=== PATIENT | female | born 1970 | race American Indian/Alaskan Native ===

== ENCOUNTER 2019-05-01 05:48 | Inpatient (IN) ==
[2019-05-01] MEDS ORDERED: 0.9 % SODIUM CHLORIDE 2,000 ML IV ONE (06:04)
[2019-05-01] MEDS ORDERED: KETOROLAC 30 MG/ML VIAL IV ONE ×2 (06:04→15:45)
[2019-05-01] MEDS ORDERED: ONDANSETRON 4 MG/2 ML VIAL IV ONE ×2 (06:04→10:58)
[2019-05-01] MEDS ORDERED: HYDROmorphone 2 MG/ML VIAL IV PRN ×2 (06:04→14:16)
[2019-05-01] MEDS ORDERED: PANTOPRAZOLE 40 MG VIAL IV ONE (06:04)
--- NOTE | 2019-05-01 06:09 | Emergency Department Note ---
Abdominal Pain HPI - General Chief Complaint: Abdominal Pain Stated Complaint: abdominal pain Time Seen by Provider: 05/01/19 05:58 Source: patient Mode of arrival: ambulatory Limitations: no limitations - History of Present Illness HPI Narrative: 48-year-old female with a 2-day history of nausea vomiting diarrhea and severe belly pain. Belly pain is generalized around the center of her belly. Denies fever or shortness of breath. She is rocking in pain. States that she is not able to keep any medicines or food down States she no longer has menses - Related Data Home Medications Medication Instructions Recorded Confirmed No Known Home Meds 05/01/19 05/01/19 Allergies Allergy/AdvReac Type Severity Reaction Status Date / Time hydrocodone Allergy Unknown Unknown Verified 05/01/19 05:52 Review of Systems All systems ED: reviewed and negative except as stated. Abdominal Pain PMH - Past Medical History Attestation: Yes: The following information was validated with the patient. PMF Narrative: Family History Aunt Malignant neoplasm of breast Father Cerebrovascular accident Medical History Hematuria (Acute) Bacterial vaginosis (Acute) UTI (urinary tract infection) (Acute) HSV infection (Acute) Asthma (Acute) Hair and hair follicle disease (Acute) Depression (Acute) Dermatitis (Acute) Past Surgical History Volvulus (Acute) Small bowel obstruction (Acute) Surgical history ED: Reports: , other (Bowel resection) - Social History Smoking status: Current every day smoker Physical Exam Patient is rocking back and forth in pain but mostly cooperative. No nasal discharge or congestion. Oropharynx pink and moist. Posterior pharynx clear. Neck is supple without lymphadenopathy or thyromegaly. Heart is regular rate and rhythm no murmur appreciated. Lungs are clear to auscultation bilaterally without wheezes rales rhonchi or respiratory distress. Abdomen is soft diffusely tender mostly around the umbilicus. I cannot reproduce the tenderness she is feeling. She is nauseous here but not actively vomiting. Alert and able to answer questions appropriately Limitations: no limitations Course Vital Signs Temperature 97.0 F 05/01/19 05:49 Pulse Rate 92 H 05/01/19 05:49 Respiratory Rate 18 05/01/19 05:49 Blood Pressure 177/115 05/01/19 05:49 Pulse Oximetry (%) 100 05/01/19 05:49 Temperature 97.0 F 05/01/19 05:49 Pulse Rate 72 05/01/19 08:04 Respiratory Rate 20 05/01/19 06:36 Blood Pressure 152/89 05/01/19 08:01 Pulse Oximetry (%) 100 05/01/19 08:04 Abdominal Pain - Lab Data Lab results reviewed: Yes I reviewed the patient's lab results. Result diagrams: 05/01/19 06:12 05/01/19 06:12 Lab Results 05/01/19 05/01/19 05/01/19 Range/Units 06:12 06:12 06:12 WBC 13.7 H (4.50-11.00) K/mcL RBC 5.77 H (3.59-5.38) M/mcL Hgb 16.4 H (11.2-15.7) g/dL Hct 50.5 H (34.1-44.9) % POC Hct 53.0 H (36.0-48.0) % MCV 87.5 (80.0-100.0) fL MCH 28.4 (26.0-34.0) pg MCHC 32.5 (31.0-36.0) g/dL RDW 12.7 (11.5-14.5) % Plt Count 318 (140-440) K/mcL MPV 10.4 (7.4-10.4) fL Gran % 81.6 H (38.0-78.0) % Lymph % (Auto) 12.7 L (15.5-49.0) % Arroyo % (Auto) 4.9 (1.0-12.0) % Eos % (Auto) 0.7 (0.0-7.0) % Baso % (Auto) 0.1 (0.0-2.0) % Gran # 11.20 H (1.80-8.00) K/mcL Lymph # (Auto) 1.74 (1.50-4.80) K/mcL Arroyo # (Auto) 0.68 (0.10-0.90) K/mcL Eos # (Auto) 0.10 (0.00-0.70) K/mcL Baso # (Auto) 0.02 (0.00-0.30) K/mcL VBG Lactic Acid 0.9 (0.5-2.0) mmol/L POC Sodium 137 (133-145) mmol/L Sodium 133 (133-145) mmol/L POC Potassium 4.0 (3.3-5.1) mmol/L Potassium 4.2 (3.3-5.1) mmol/L POC Chloride 102 (96-108) mmol/L Chloride 97 (96-108) mmol/L Carbon Dioxide 23 (22-30) mmol/L POC Total CO2 26 (22-30) mmol/L Anion Gap 13.0 (8-16) POC BUN 17 (6-20) mg/dl BUN 15 (6-20) mg/dl Creatinine 1.0 (0.6-1.1) mg/dl POC Creatinine 0.9 (0.6-1.1) mg/dl GFR Calculation 67 Glucose 102 (70-105) mg/dL POC Glucose 101 (70-105) mg/dL Calcium 9.8 (8.6-10.4) mg/dl POC WB Ioniz Calcium 1.13 L (1.16-1.32) mmol/L Total Bilirubin 0.6 (0.0-1.0) mg/dL AST 20 (0-37) U/l ALT 16 (0-40) U/l Alkaline Phosphatase 107 (39-117) U/L Total Protein 8.5 H (5.9-8.4) gm/dL Albumin 4.2 (3.2-5.2) gm/dL Globulin 4.3 H (2.2-3.7) gm/dL Albumin/Globulin Ratio 1.0 (1.0-2.3) Amylase 77 (28-100) U/L Lipase 30 (7-60) U/L Urinalysis [id number] dipstick shows specific gravity 1.030 and hematuria otherwise normal. Negative hCG - Radiology Data Radiology results reviewed: Yes I reviewed the patient's radiology results. CT scan of the abdomen pelvis without contrast shows dilated fluid-filled small bowel loops throughout the abdomen transition point is not identified. Evidence of partial bowel restriction with your anastomosis is seen. Findings are suggestive of intermediate to high-grade distal small bowel obstruction versus ileus Disposition Pt seen by SHINGLE CATCHER/PA only: No Clinical Impression: Small bowel obstruction Summary: Severe abdominal pain with uncontrolled nausea and vomiting. Unclear cause. Check x-ray for small bowel obstruction. Laboratory. Start Dilaudid Toradol and Zofran along with IV fluids Preliminary urinalysis [id number] dipstick shows hematuria with specific ap pendectomy 1.030 indicating urine concentration. Stop x-ray and instead switch to CT without contrast for urinary stone Partial small bowel obstruction seen on CT scan. I discussed the case with Dr. Kevin Clemons, general surgeon. He said he will come see the patient in the ER Shift change came and patient will be handed off to Dr. Madsen for final disposition Disposition: Still a Patient Condition: Fair Referrals: Wong Mcnair ARNP [Primary Care Provider] -
[2019-05-01 06:22] LABS: POC Blood Urea Nitrogen 17 mg/dl (6-20); POC CO2 26 mmol/L (22-30); POC Calcium, Ionized 1.13 mmol/L (1.16-1.32); POC Chloride 102 mmol/L (96-108); POC Creatinine 0.9 mg/dl (0.6-1.1); POC Glucose, Random 101 mg/dL (70-105); POC Sodium 137 mmol/L (133-145)
[2019-05-01 06:39] LABS: Basophils # (Auto) 0.02 K/mcL (0.00-0.30); Basophils % (Auto) 0.1 % (0.0-2.0); Eosinophils % (Auto) 0.7 % (0.0-7.0); Granulocytes % (Auto) 81.6 % (38.0-78.0); Hematocrit 50.5 % (34.1-44.9); Hemoglobin 16.4 g/dL (11.2-15.7); Lymphocytes # (Auto) 1.74 K/mcL (1.50-4.80); Lymphocytes % (Auto) 12.7 % (15.5-49.0); Mean Cell Volume 87.5 fL (80.0-100.0); Mean Corpuscular HGB Conc 32.5 g/dL (31.0-36.0); Mean Platelet Volume 10.4 fL (7.4-10.4); Monocytes # (Auto) 0.68 K/mcL (0.10-0.90); Monocytes % (Auto) 4.9 % (1.0-12.0); Platelet Count 318 K/mcL (140-440); RBC 5.77 M/mcL (3.59-5.38); Red Cell Distribution Width 12.7 % (11.5-14.5); WBC 13.7 K/mcL (4.50-11.00)
[2019-05-01 07:01] LABS: ALT/SGPT 16 U/l (0-40); AST/SGOT 20 U/l (0-37); Albumin 4.2 gm/dL (3.2-5.2); Alkaline Phosphatase 107 U/L (39-117); Amylase 77 U/L (28-100); Bilirubin,Total 0.6 mg/dL (0.0-1.0); Blood Urea Nitrogen 15 mg/dl (6-20); Calcium 9.8 mg/dl (8.6-10.4); Carbon Dioxide 23 mmol/L (22-30); Chloride 97 mmol/L (96-108); Globulin 4.3 gm/dL (2.2-3.7); Glomerular Filtration Rate 67; Glucose 102 mg/dL (70-105)
--- NOTE | 2019-05-01 09:07 | Cat Scan Report ---
CLINICAL INFORMATION: Flank pain and hematuria COMPARISON: Abdomen and pelvic CT 07/18/2013 TECHNIQUE: 0.625 mm helical slices were obtained from the mid heart through the subtrochanteric regions. Following reconstruction, 2.5 mm sagittal, coronal and axial reformatted images were processed and reviewed at bone and soft tissue windows.The exam was performed using radiation dose optimization techniques including, but not limited to, automated exposure control, adjustment of the mA and/or kV according to patient size and use of iterative reconstruction technique. FINDINGS: Lung bases show no abnormality - no effusion. The visualized heart is normal. Abdominal images show the noncontrasted gallbladder and bile ducts, liver, both kidneys, adrenal glands, spleen, pancreas, and aorta are normal in size, configuration and attenuation without focal lesion. There is no free air, free fluid and no adenopathy. Pelvic images show anteflexed uterus which is moderately enlarged: 11 x 4.7 cm. IUD is properly positioned in the endometrial cavity. The region of the ovaries and urinary bladder are normal. There are multiple loops of moderately dilated small bowel with decompression of the distal ileum and colon compatible with partial distal small bowel obstruction. A dilated segment of small bowel in the upper central mesenteric cavity is juxtaposed to the greater curvature of the stomach. There are surgical clips in this region compatible with partial small bowel resection. Absence of both IV and enteric contrast decreases sensitivity in analyzing postsurgical anatomy surgical anatomy.. Bone windows show no focal osseous lesions. At L3-4, there is severe central canal stenosis due to congenitally foreshortened pedicles, grade 1 spondylolisthesis, facet hypertrophy and disc protrusion. IMPRESSION: 1. High-grade distal partial small bowel obstruction - poorly visualized due to the absence of enteric and IV contrast. Suggest small bowel follow-through to confirm diagnosis and detect transition point. There is no free air suggest perforation and no free fluid suggest third spacing. 2. Moderately enlarged anteflexed uterus stable since 2013. This almost certainly due to adenomyosis. There may also be a fibroid in the uterine fundus. IUD in satisfactory position endometrial cavity. 3. 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 This has increased from 2013 study Interpreted and Authenticated by: Rg Yang 05/01/19
[2019-05-01] MEDS ORDERED: PIPERACILLIN SODIUM/TAZOBACTAM 3.375 GM in DEXTROSE 5% IN WATER 50 ML IV ONE (09:36)
--- NOTE | 2019-05-01 09:42 | General Surg History&Physical ---
History of Present Illness Patient information: Note initiated : 05/01/19 at 9:39 am Service Date, if different from initiated Date: [] Patient: Ana Laura Clemons a 48 y/o F admitted on for Abdominal Pain. Chief Complaint: [] HPI: Ms. Clemons is a 48 year old F Admitted via the emergency room with a high-grade that bowel obstruction. The patient states that she had onset of abdominal pain early yesterday morning. This was followed by multiple episodes of nausea vomiting. Pain persisted throughout the night and she finally came to the emergency room. Her last bowel movement was yesterday. She has not had any flatus since that time. Patient gives a history of having inadvertent injury of her small bowel doing a C- section 9 years ago. And this was missed and she developed fecal peritonitis and had emergency exploration about 5 days post . According to her memory. Her small bowel was sutured to her uterus causing the obstruction. She required a small bowel resection. She had another exploration in 2011 which required small bowel resection. Since that time she's had 3 admissions for partial small bowel obstruction. At this time the patient is a very is in excruciating pain. She has significant abdominal distention and CT of the abdomen is compatible with a high-grade small bowel obstruction with a small bowel loop measuring over 9 cm. Patient is counseled for exploratory laparotomy and it will be performed today. Review of Systems All systems PM: reviewed and no additional remarkable complaints except as stated (negative except as noted in the history of present illness) Past History Past medical history: No chronic medical illness Past surgical history: Laparotomy with small bowel resection 2. section Past family history: AUNT with history of carcinoma the breast Father with stroke Past social history: Lives locally with parents. Daily tobacco smoker. Daily marijuana use. Denies alcohol use Medications and Allergies Home Medications Medication Instructions Recorded Confirmed Type No Known Home Meds 05/01/19 05/01/19 History Allergies Allergy/AdvReac Type Severity Reaction Status Date / Time hydrocodone Allergy Unknown Unknown Verified 05/01/19 05:52 Exam Temp Pulse Resp BP Pulse Ox 97.0 F 72 20 152/89 100 05/01/19 05:49 05/01/19 08:04 05/01/19 06:36 05/01/19 08:01 05/01/19 08:04 - General physical appearance well developed, well nourished, moderate distress, moderate pain - Eyes PERRL, normal ocular movement - ENT normal pinna, normal nares, normal mucosa, no hearing loss, no congestion, poor jail (multiple missing teeth) - Head Head exam IM: Present: atraumatic, normocephalic - Neck no masses, no bruits, trachea midline, no lymphadenopathy, no venous distension - Cardiovascular Cardiovascular exam IM: Present: normal rate and rhythm - Respiratory normal expansion, normal respiratory effort, clear to percussion, clear to auscultation - Abdomen Abdomen: Present: soft, tender (diffuse tenderness with guarding and midabdomen), bowel sounds, surgical scars (well-healed lower midline surgical scar), distended (distended abdomen with tympany; hyperactive bowel sounds) Hernia: Present: none - Genitourinary Present: normal external genitalia - Integumentary Present: no rash, no growths, no abnormal pigmentation - Neurologic Present: normal coordination, normal sensation - Musculoskeletal Present: normal gait, normal posture - Psychiatric Present: oriented to time, oriented to person, oriented to place, speech is normal, memory intact Assessment and Plan (1) Small bowel obstruction due to postoperative adhesions Patient counseled for urgent exploratory laparotomy and adhesiolysis. She is advised that she may potentially need to have repeat small bowel resection. Status: Acute
[2019-05-01] MEDS ORDERED: 0.9 % SODIUM CHLORIDE 1,000 ML IV ONE (09:47)
[2019-05-01] MEDS ORDERED: ALBUMIN HUMAN 12.5 GM/50 ML BAG IV ONE ×2 (10:21→10:58)
[2019-05-01] MEDS ORDERED: MAGNESIUM SULFATE 2 GM/50 ML BAG IV ONE ×2 (10:28→10:58)
[2019-05-01] MEDS ORDERED: SUGAMMADEX SODIUM 200 MG/2 ML VIAL IV ONE (10:58)
[2019-05-01] MEDS ORDERED: PHENYLEPHRINE 10 MG/ML VIAL IV ONE (10:58)
[2019-05-01] MEDS ORDERED: LIDOCAINE HCL/PF 100 MG/5 ML SYRINGE IV ONE (10:58)
[2019-05-01] MEDS ORDERED: KETAMINE 100 MG/ML ML IV ONE (10:58)
[2019-05-01] MEDS ORDERED: SUCCINYLCHOLINE 20 MG/ML ML IV ONE (10:58)
[2019-05-01] MEDS ORDERED: DEXAMETHASONE 10 MG/ML VIAL IV ONE (10:58)
[2019-05-01] MEDS ORDERED: PROPOFOL 200 MG/20 ML VIAL IV ONE (10:58)
[2019-05-01] MEDS ORDERED: fentaNYL 250 MCG/5 ML VIAL IV ONE (10:58)
[2019-05-01] MEDS ORDERED: ROPIVACAINE HCL/PF 30 ML VIAL IJ ONE (10:58)
[2019-05-01] MEDS ORDERED: ROCURONIUM 10 MG/ML ML IV ONE (10:58)
[2019-05-01 12:12] LABS: Amphetamine Screen,Urine SUSPECT POSITIVE (NONDETECTED); Barbiturate Screen,Urine NONE DETECTED (NONDETECTED); Benzodiazepines Screen,Urine NONE DETECTED (NONDETECTED); Cannabinoid Screen,Urine SUSPECT POSITIVE (NONDETECTED); Cocaine Screen,Urine NONE DETECTED (NONDETECTED); Opiate Screen,Urine SUSPECT POSITIVE (NONDETECTED); Oxycodone, Urine Screen NONE DETECTED (NONDETECTED); Phencyclidine Screen,Urine NONE DETECTED (NONDETECTED)
--- NOTE | 2019-05-01 14:13 | Brief Operative Note ---
Date of procedure: 05/01/19 Pre-op diagnosis: SMALL BOWEL OBSTRUCTION Post-op diagnosis: other (EXTENSIVE ADHESIONS WITH SMALL BOWEL OBSTRUCTION) Procedure: EXPLORATORY LAPAROTOMY WITH TOTAL INTESTINAL ADHESIOLYSIS;SMALL BOWEL RESECTION X 2;APPENDECTOMY Grafts/Implants: No Anesthesia: GETA Findings: TOTAL INTRAPERITONEAL INTESTINAL ADHESIONS WITH MULTIPLE AREAS OF NEAR COMPLETE SMALLBOEL OBSTRUCTION;DENSE INFLAMMATORY ADHESIONS OF ILEUM TO LOWER ABDOMINAL ANTERIOR WALL;TIGHT ADHESIONS OF UTERUS TO LOWER ANTERIOR ABDOMINAL WALL;ENLARGED OVARIES BILATERALLY;MASSIVE DILATION OF MID JEJUNO-JEJUNAL ANASTOM OSIS WITH LOSS OF PERISTALSIS AND RETENTION OF LARGE VOLUME OF INTESTINAL FLUID;DENSELY ADHESED APPENDIX TO RETROPERITONEUM Complications: none Surgeon: Ata Jasmine Estimated blood loss (cc): 100 Specimens Removed/Pathology: other (SEGMENT OF SMALL BOWEL X2;APPENDIX) Condition: stable Disposition: PACU
[2019-05-01] MEDS ORDERED: IPRATROPIUM/ALBUTEROL 3 ML AMPUL.NEB NEB PRN (14:16)
[2019-05-01] MEDS ORDERED: LACTATED RINGERS 250 ML IV PRN (14:16)
[2019-05-01] MEDS ORDERED: LABETALOL 5 MG/ML ML IV PRN (14:16)
[2019-05-01] MEDS ORDERED: ACETAMINOPHEN 1,000 MG/100 ML BOTTLE IV ONE (14:16)
[2019-05-01] MEDS ORDERED: METOPROLOL TARTRATE 5 MG/5 ML VIAL IV PRN (14:16)
[2019-05-01] MEDS ORDERED: FLUMAZENIL 0.1 MG/ML ML IV PRN (14:16)
[2019-05-01] MEDS ORDERED: ONDANSETRON 4 MG/2 ML VIAL IV PRN (14:16)
[2019-05-01] MEDS ORDERED: NALOXONE HCL 0.4 MG/ML VIAL IV PRN (14:16)
[2019-05-01] MEDS ORDERED: fentaNYL 100 MCG/2 ML VIAL IV PRN (14:16)
[2019-05-01] MEDS ORDERED: BENZOCAINE/MENTHOL 1 LOZENGE PO PRN (14:16)
[2019-05-01] MEDS ORDERED: METHOCARBAMOL 1,000 MG/10 ML VIAL IV PRN (14:16)
[2019-05-01] MEDS ORDERED: PROMETHAZINE 25 MG/ML VIAL IV PRN (14:16)
[2019-05-01] MEDS ORDERED: LACTATED RINGERS 1,000 ML IV SCH (14:30)
[2019-05-01] MEDS: PIPERACILLIN SODIUM/TAZOBACTAM 3.375 GM in DEXTROSE 5% IN WATER 50 ML IV SCH ×2 (17:03→19:33)
[2019-05-01] MEDS: LACTATED RINGERS 1,000 ML IV SCH (17:03)
[2019-05-01] MEDS: METOCLOPRAMIDE 10 MG/2 ML VIAL IV SCH ×2 (17:13→23:27)
[2019-05-01] MEDS: BENZOCAINE 1 SPRAY BOTTLE TOPICAL PRN ×2 (17:16→19:33)
[2019-05-01] MEDS: HYDROmorphone 2 MG/ML VIAL IV PRN ×2 (19:32→23:27)
[2019-05-01] MEDS: 0.9 % SODIUM CHLORIDE 10 ML SYRINGE IV SCH (20:06)
[2019-05-01] MEDS: KETOROLAC 30 MG/ML VIAL IV SCH (21:53)
[2019-05-02] MEDS: KETOROLAC 30 MG/ML VIAL IV SCH ×5 (00:24→23:43)
[2019-05-02] MEDS: LACTATED RINGERS 1,000 ML IV SCH ×3 (00:36→17:25)
[2019-05-02] MEDS: PIPERACILLIN SODIUM/TAZOBACTAM 3.375 GM in DEXTROSE 5% IN WATER 50 ML IV SCH ×5 (00:37→23:42)
[2019-05-02] MEDS: BENZOCAINE 1 SPRAY BOTTLE TOPICAL PRN ×6 (03:02→21:54)
[2019-05-02] MEDS: HYDROmorphone 2 MG/ML VIAL IV PRN ×7 (03:03→21:54)
[2019-05-02] MEDS: METOCLOPRAMIDE 10 MG/2 ML VIAL IV SCH ×4 (05:29→23:42)
[2019-05-02] MEDS: 0.9 % SODIUM CHLORIDE 10 ML SYRINGE IV SCH ×3 (06:06→21:14)
[2019-05-02 06:43] LABS: Basophils # (Auto) 0.03 K/mcL (0.00-0.30); Basophils % (Auto) 0.2 % (0.0-2.0); Eosinophils # (Auto) 0.03 K/mcL (0.00-0.70); Eosinophils % (Auto) 0.2 % (0.0-7.0); Granulocytes % (Auto) 85.3 % (38.0-78.0); Hematocrit 39.2 % (34.1-44.9); Hemoglobin 12.7 g/dL (11.2-15.7); Lymphocytes # (Auto) 1.04 K/mcL (1.50-4.80); Lymphocytes % (Auto) 7.3 % (15.5-49.0); Mean Cell Volume 88.9 fL (80.0-100.0); Mean Corpuscular HGB Conc 32.4 g/dL (31.0-36.0); Mean Platelet Volume 10.3 fL (7.4-10.4); Platelet Count 263 K/mcL (140-440); RBC 4.41 M/mcL (3.59-5.38); Red Cell Distribution Width 12.5 % (11.5-14.5); WBC 14.2 K/mcL (4.50-11.00)
[2019-05-02 07:05] LABS: ALT/SGPT 13 U/l (0-40); AST/SGOT 18 U/l (0-37); Albumin 3.2 gm/dL (3.2-5.2); Alkaline Phosphatase 73 U/L (39-117); Bilirubin,Direct < 0.2 mg/dL (0.0-0.3); Bilirubin,Total 0.7 mg/dL (0.0-1.0); Blood Urea Nitrogen 18 mg/dl (6-20); Calcium 8.1 mg/dl (8.6-10.4); Carbon Dioxide 20 mmol/L (22-30); Chloride 104 mmol/L (96-108); Glomerular Filtration Rate 76; Glucose 117 mg/dL (70-105); Lactate Dehydrogenase 189 U/L (94-250); Triglycerides 36 mg/dl (<150); Uric Acid 2.9 mg/dL (2.5-8.0)
[2019-05-02 07:06] LABS: Globulin 3.2 gm/dL (2.2-3.7)
--- NOTE | 2019-05-02 13:52 | General Surgery Progress Note ---
Subjective Patient reports: feels better, pain is less, no flatus, no bowel movement, afebrile Narrative: Note initiated : 05/02/19 at 1:50 pm Service Date, if different from initiated Date: [] Patient: Ana Laura Clemons 48 y/o F admitted on 05/01/19 for Abdominal Pain. Chief Complaint: [Patient is stable. Pain is better controlled. She has been afebrile. She denies nausea. White blood count 14.2, hemoglobin 12.7, hematocrit 32, BUN 18, creatinine 0.9.] Objective Temp Pulse Resp BP Pulse Ox 98.1 F 90 14 142/82 91 05/02/19 11:45 05/02/19 11:45 05/02/19 11:45 05/02/19 11:45 05/02/19 11:45 - Additional Data Intake & Output - Last 24 hours: Intake & Output 04/30/19 05/01/19 05/02/19 05/03/19 05:59 05:59 05:59 05:59 Intake Total 6398 1100 Output Total 975 Balance 5423 1100 Weight 170 lb 200 lb - General physical appearance well developed, well nourished, no distress, moderate distress, moderate pain - Eyes PERRL, normal ocular movement - ENT normal pinna, normal nares, normal mucosa, no hearing loss, no congestion - Neck no masses, no bruits, trachea midline, no lymphadenopathy, no venous distension - Respiratory normal expansion, normal respiratory effort, clear to auscultation - Cardiovascular Cardiovascular exam: Present: normal rate and rhythm, RRR, +S1, +S2 (yes). Absent: JVD, tachycardia - Abdomen non tender, bowel sounds (present), surgical scars (incision looks good), masses (none), distended (moderate distention with active bowel sounds) - Integumentary no rash, no growths, no abnormal pigmentation - Neurologic normal coordination, normal sensation - Musculoskeletal normal gait, normal posture - Psychiatric oriented to time, oriented to person, oriented to place, speech is normal, memory intact - Labs 05/02/19 05:21 05/02/19 05:21 Diabetes panel 05/02/19 Range/Units 05:21 Sodium 137 (133-145) mmol/L Potassium 4.2 (3.3-5.1) mmol/L Chloride 104 (96-108) mmol/L Carbon Dioxide 20 L (22-30) mmol/L BUN 18 (6-20) mg/dl Creatinine 0.9 (0.6-1.1) mg/dl Glucose 117 H (70-105) mg/dL Calcium 8.1 L (8.6-10.4) mg/dl AST 18 (0-37) U/l ALT 13 (0-40) U/l Alkaline Phosphatase 73 (39-117) U/L Total Protein 6.4 (5.9-8.4) gm/dL Albumin 3.2 (3.2-5.2) gm/dL Triglycerides 36 (<150) mg/dl Calcium panel 05/02/19 Range/Units 05:21 Calcium 8.1 L (8.6-10.4) mg/dl Phosphorus 4.0 (2.7-4.5) mg/dL Albumin 3.2 (3.2-5.2) gm/dL Pituitary panel 05/02/19 Range/Units 05:21 Sodium 137 (133-145) mmol/L Potassium 4.2 (3.3-5.1) mmol/L Chloride 104 (96-108) mmol/L Carbon Dioxide 20 L (22-30) mmol/L BUN 18 (6-20) mg/dl Creatinine 0.9 (0.6-1.1) mg/dl Glucose 117 H (70-105) mg/dL Calcium 8.1 L (8.6-10.4) mg/dl Adrenal panel 05/02/19 Range/Units 05:21 Sodium 137 (133-145) mmol/L Potassium 4.2 (3.3-5.1) mmol/L Chloride 104 (96-108) mmol/L Carbon Dioxide 20 L (22-30) mmol/L BUN 18 (6-20) mg/dl Creatinine 0.9 (0.6-1.1) mg/dl Glucose 117 H (70-105) mg/dL Calcium 8.1 L (8.6-10.4) mg/dl Total Bilirubin 0.7 (0.0-1.0) mg/dL AST 18 (0-37) U/l ALT 13 (0-40) U/l Alkaline Phosphatase 73 (39-117) U/L Total Protein 6.4 (5.9-8.4) gm/dL Albumin 3.2 (3.2-5.2) gm/dL Assessment and Plan (1) Small bowel obstruction due to postoperative adhesions Status: Acute Assessment and plan: Patient is clinically stable. She is allowed to have ice chips and popsicles. We'll continue present treatment Current Visit: Yes - Time Spent With Patient Total time spent is greater than 50% in coordination of care (as documented) at patient's floor/unit and/or counseling patient:
[2019-05-03] MEDS: LACTATED RINGERS 1,000 ML IV SCH ×5 (00:02→21:59)
[2019-05-03] MEDS: HYDROmorphone 2 MG/ML VIAL IV PRN ×4 (01:29→21:57)
[2019-05-03] MEDS: PIPERACILLIN SODIUM/TAZOBACTAM 3.375 GM in DEXTROSE 5% IN WATER 50 ML IV SCH ×4 (05:12→23:29)
[2019-05-03] MEDS: METOCLOPRAMIDE 10 MG/2 ML VIAL IV SCH ×4 (05:13→23:29)
[2019-05-03] MEDS: BENZOCAINE 1 SPRAY BOTTLE TOPICAL PRN ×7 (05:13→23:29)
[2019-05-03] MEDS: KETOROLAC 30 MG/ML VIAL IV SCH ×2 (05:13→13:08)
[2019-05-03] MEDS: 0.9 % SODIUM CHLORIDE 10 ML SYRINGE IV SCH ×3 (05:39→21:37)
[2019-05-03 06:28] LABS: Basophils # (Auto) 0.02 K/mcL (0.00-0.30); Basophils % (Auto) 0.2 % (0.0-2.0); Eosinophils # (Auto) 0.17 K/mcL (0.00-0.70); Eosinophils % (Auto) 1.6 % (0.0-7.0); Granulocytes % (Auto) 82.4 % (38.0-78.0); Hematocrit 37.6 % (34.1-44.9); Lymphocytes # (Auto) 1.08 K/mcL (1.50-4.80); Lymphocytes % (Auto) 10.2 % (15.5-49.0); Mean Cell Volume 89.3 fL (80.0-100.0); Mean Corpuscular HGB Conc 31.9 g/dL (31.0-36.0); Mean Platelet Volume 10.7 fL (7.4-10.4); Monocytes # (Auto) 0.59 K/mcL (0.10-0.90); Monocytes % (Auto) 5.6 % (1.0-12.0); Platelet Count 228 K/mcL (140-440); RBC 4.21 M/mcL (3.59-5.38); Red Cell Distribution Width 12.7 % (11.5-14.5); WBC 10.6 K/mcL (4.50-11.00)
[2019-05-03 07:20] LABS: Bilirubin,Direct < 0.2 mg/dL (0.0-0.3); Chloride 103 mmol/L (96-108)
[2019-05-03 07:29] LABS: ALT/SGPT 11 U/l (0-40); AST/SGOT 20 U/l (0-37); Albumin 2.8 gm/dL (3.2-5.2); Albumin/Globulin Ratio 0.8 (1.0-2.3); Alkaline Phosphatase 81 U/L (39-117); Bilirubin,Total 0.6 mg/dL (0.0-1.0); Blood Urea Nitrogen 18 mg/dl (6-20); Calcium 8.4 mg/dl (8.6-10.4); Carbon Dioxide 21 mmol/L (22-30); Globulin 3.6 gm/dL (2.2-3.7); Glomerular Filtration Rate 88; Glucose 101 mg/dL (70-105); Lactate Dehydrogenase 234 U/L (94-250); Phosphorous 2.2 mg/dL (2.7-4.5); Triglycerides 65 mg/dl (<150); Uric Acid 2.4 mg/dL (2.5-8.0)
[2019-05-03] MEDS ORDERED: FLU VACC QS2019-20(6MOS UP)/PF 60 MCG/0.5 ML SYRINGE IM ONE (10:00)
--- NOTE | 2019-05-03 14:38 | General Surgery Progress Note ---
Subjective Patient reports: still having pain, no flatus, no bowel movement, afebrile Narrative: Note initiated : 05/03/19 at 2:36 pm Service Date, if different from initiated Date: [] Patient: Ana Laura Clemons 48 y/o F admitted on 05/01/19 for Abdominal Pain. Chief Complaint: [patient is having complaints of significant pain. She does not appear to be in the acute distress. Vital signs stable and she is not tachycardic. He has not had flatus or bowel movement. White blood count 10.6, hemoglobin 12, hematocrit 37.6, phosphorus 2.2.] Objective Temp Pulse Resp BP Pulse Ox 98.2 F 98 H 16 131/78 91 05/03/19 03:34 05/03/19 03:34 05/03/19 03:34 05/03/19 03:34 05/03/19 03:34 - Additional Data Intake & Output - Last 24 hours: Intake & Output 05/01/19 05/02/19 05/03/19 05/04/19 05:59 05:59 05:59 05:59 Intake Total 6398 3650 1044 Output Total 975 900 Balance 5423 2750 1044 Weight 170 lb 200 lb 200 lb 8 oz 200 lb 8 oz - General physical appearance well developed, moderate distress, moderate pain - Eyes PERRL, normal ocular movement - ENT normal pinna, normal nares, normal mucosa, no hearing loss, no congestion, poor long-term - Neck no masses, no bruits, trachea midline, no lymphadenopathy, no venous distension - Respiratory normal expansion, normal respiratory effort, clear to auscultation - Cardiovascular Cardiovascular exam: Present: normal rate and rhythm, RRR, +S1, +S2. Absent: JVD, tachycardia - Abdomen tender (mild incisional tenderness), bowel sounds (present), surgical scars (none), masses (none) - Integumentary no rash, no growths, no abnormal pigmentation - Neurologic normal coordination, normal sensation - Musculoskeletal normal gait, normal posture - Psychiatric oriented to time, oriented to person, oriented to place, speech is normal, memory intact - Labs 05/03/19 05:09 05/03/19 05:09 Diabetes panel 05/03/19 Range/Units 05:09 Sodium 137 (133-145) mmol/L Potassium 4.0 (3.3-5.1) mmol/L Chloride 103 (96-108) mmol/L Carbon Dioxide 21 L (22-30) mmol/L BUN 18 (6-20) mg/dl Creatinine 0.8 (0.6-1.1) mg/dl Glucose 101 (70-105) mg/dL Calcium 8.4 L (8.6-10.4) mg/dl AST 20 (0-37) U/l ALT 11 (0-40) U/l Alkaline Phosphatase 81 (39-117) U/L Total Protein 6.4 (5.9-8.4) gm/dL Albumin 2.8 L (3.2-5.2) gm/dL Triglycerides 65 (<150) mg/dl Calcium panel 05/03/19 Range/Units 05:09 Calcium 8.4 L (8.6-10.4) mg/dl Phosphorus 2.2 L (2.7-4.5) mg/dL Albumin 2.8 L (3.2-5.2) gm/dL Pituitary panel 05/03/19 Range/Units 05:09 Sodium 137 (133-145) mmol/L Potassium 4.0 (3.3-5.1) mmol/L Chloride 103 (96-108) mmol/L Carbon Dioxide 21 L (22-30) mmol/L BUN 18 (6-20) mg/dl Creatinine 0.8 (0.6-1.1) mg/dl Glucose 101 (70-105) mg/dL Calcium 8.4 L (8.6-10.4) mg/dl Adrenal panel 05/03/19 Range/Units 05:09 Sodium 137 (133-145) mmol/L Potassium 4.0 (3.3-5.1) mmol/L Chloride 103 (96-108) mmol/L Carbon Dioxide 21 L (22-30) mmol/L BUN 18 (6-20) mg/dl Creatinine 0.8 (0.6-1.1) mg/dl Glucose 101 (70-105) mg/dL Calcium 8.4 L (8.6-10.4) mg/dl Total Bilirubin 0.6 (0.0-1.0) mg/dL AST 20 (0-37) U/l ALT 11 (0-40) U/l Alkaline Phosphatase 81 (39-117) U/L Total Protein 6.4 (5.9-8.4) gm/dL Albumin 2.8 L (3.2-5.2) gm/dL - Imaging Abdominal x-ray: report reviewed Assessment and Plan (1) Small bowel obstruction due to postoperative adhesions Status: Acute Assessment and plan: Patient is clinically stable. She is allowed to have ice chips and popsicles. We'll continue present treatment Current Visit: Yes - Time Spent With Patient Total time spent is greater than 50% in coordination of care (as documented) at patient's floor/unit and/or counseling patient:
[2019-05-03] MEDS ORDERED: POTASSIUM PHOSPHATE 40 MEQ in DEXTROSE 5% IN WATER 500 ML IV ONE (14:39)
[2019-05-04] MEDS: HYDROmorphone 2 MG/ML VIAL IV PRN ×4 (00:23→22:35)
[2019-05-04] MEDS: PIPERACILLIN SODIUM/TAZOBACTAM 3.375 GM in DEXTROSE 5% IN WATER 50 ML IV SCH ×4 (05:04→23:30)
[2019-05-04] MEDS: METOCLOPRAMIDE 10 MG/2 ML VIAL IV SCH ×4 (05:04→23:28)
[2019-05-04] MEDS: BENZOCAINE 1 SPRAY BOTTLE TOPICAL PRN (05:11)
[2019-05-04] MEDS: 0.9 % SODIUM CHLORIDE 10 ML SYRINGE IV SCH ×3 (05:23→23:28)
[2019-05-04 07:18] LABS: ALT/SGPT 10 U/l (0-40); AST/SGOT 17 U/l (0-37); Albumin 2.7 gm/dL (3.2-5.2); Albumin/Globulin Ratio 0.7 (1.0-2.3); Alkaline Phosphatase 93 U/L (39-117); Bilirubin,Direct 0.2 mg/dL (0.0-0.3); Bilirubin,Total 0.7 mg/dL (0.0-1.0); Blood Urea Nitrogen 10 mg/dl (6-20); Calcium 8.7 mg/dl (8.6-10.4); Carbon Dioxide 24 mmol/L (22-30); Chloride 100 mmol/L (96-108); Globulin 3.7 gm/dL (2.2-3.7); Glomerular Filtration Rate 88; Glucose 118 mg/dL (70-105); Lactate Dehydrogenase 211 U/L (94-250); Triglycerides 68 mg/dl (<150); Uric Acid 2.5 mg/dL (2.5-8.0)
[2019-05-04 07:33] LABS: Phosphorous 3.1 mg/dL (2.7-4.5)
[2019-05-04] MEDS: LACTATED RINGERS 1,000 ML IV SCH ×3 (08:24→17:47)
[2019-05-04 09:27] LABS: Basophils # (Auto) 0.03 K/mcL (0.00-0.30); Basophils % (Auto) 0.3 % (0.0-2.0); Eosinophils # (Auto) 0.28 K/mcL (0.00-0.70); Eosinophils % (Auto) 2.4 % (0.0-7.0); Granulocytes % (Auto) 87.2 % (38.0-78.0); Hematocrit 35.1 % (34.1-44.9); Hemoglobin 11.3 g/dL (11.2-15.7); Lymphocytes # (Auto) 0.76 K/mcL (1.50-4.80); Lymphocytes % (Auto) 6.4 % (15.5-49.0); Mean Cell Volume 88.2 fL (80.0-100.0); Mean Corpuscular HGB Conc 32.2 g/dL (31.0-36.0); Mean Platelet Volume 10.6 fL (7.4-10.4); Monocytes # (Auto) 0.44 K/mcL (0.10-0.90); Monocytes % (Auto) 3.7 % (1.0-12.0); Platelet Count 230 K/mcL (140-440); RBC 3.98 M/mcL (3.59-5.38); Red Cell Distribution Width 12.7 % (11.5-14.5); WBC 11.9 K/mcL (4.50-11.00)
[2019-05-04] MEDS: ONDANSETRON 4 MG/2 ML VIAL IV PRN (12:40)
--- NOTE | 2019-05-04 14:11 | General Surgery Progress Note ---
Subjective Patient reports: feels better, pain is less, voiding w/o difficulty, flatus, no bowel movement, afebrile Narrative: Note initiated : 05/04/19 at 2:09 pm Service Date, if different from initiated Date: [] Patient: Ana Laura Clemons 48 y/o F admitted on 05/01/19 for Abdominal Pain. Chief Complaint: [patient states that she was feeling better earlier today. She has passed flatus multiple times. She has not had a bowel movement. She was given a trial of clear liquids had emesis 2 hours later, so she is placed back on popsicles and ice chips. White count 11.9, hemoglobin 11.3, hematocrit 35, and patient panel normal.] Objective Temp Pulse Resp BP Pulse Ox 97.8 F 80 18 159/95 91 05/04/19 12:00 05/04/19 12:00 05/04/19 12:00 05/04/19 12:00 05/04/19 12:00 - Additional Data Intake & Output - Last 24 hours: Intake & Output 05/02/19 05/03/19 05/04/19 05/05/19 05:59 05:59 05:59 05:59 Intake Total 6398 3650 3753.0909 1280 Output Total 021 432 8198 Balance 5423 2750 -196.9091 1280 Weight 200 lb 200 lb 8 oz 203 lb - General physical appearance well developed, well nourished, no distress, moderate distress, moderate pain - Eyes PERRL, normal ocular movement - ENT normal pinna, normal nares, normal mucosa, no hearing loss, no congestion - Neck no masses, no bruits, trachea midline, no lymphadenopathy, no venous distension - Respiratory normal expansion, normal respiratory effort, clear to auscultation - Cardiovascular Cardiovascular exam: Present: normal rate and rhythm, RRR, +S1, +S2. Absent: JVD, tachycardia - Abdomen tender (patient has incisional tenderness; she does have hypoactive bowel sounds; there is mild abdominal), bowel sounds (present), surgical scars (none), masses (none) - Integumentary no rash, no growths, no abnormal pigmentation - Neurologic normal coordination, normal sensation - Musculoskeletal normal gait, normal posture - Psychiatric oriented to time, oriented to person, oriented to place, speech is normal, memory intact - Labs 05/04/19 05:45 05/04/19 05:45 Diabetes panel 05/04/19 Range/Units 05:45 Sodium 138 (133-145) mmol/L Potassium 3.7 (3.3-5.1) mmol/L Chloride 100 (96-108) mmol/L Carbon Dioxide 24 (22-30) mmol/L BUN 10 (6-20) mg/dl Creatinine 0.8 (0.6-1.1) mg/dl Glucose 118 H (70-105) mg/dL Calcium 8.7 (8.6-10.4) mg/dl AST 17 (0-37) U/l ALT 10 (0-40) U/l Alkaline Phosphatase 93 (39-117) U/L Total Protein 6.4 (5.9-8.4) gm/dL Albumin 2.7 L (3.2-5.2) gm/dL Triglycerides 68 (<150) mg/dl Calcium panel 05/04/19 Range/Units 05:45 Calcium 8.7 (8.6-10.4) mg/dl Phosphorus 3.1 (2.7-4.5) mg/dL Albumin 2.7 L (3.2-5.2) gm/dL Pituitary panel 05/04/19 Range/Units 05:45 Sodium 138 (133-145) mmol/L Potassium 3.7 (3.3-5.1) mmol/L Chloride 100 (96-108) mmol/L Carbon Dioxide 24 (22-30) mmol/L BUN 10 (6-20) mg/dl Creatinine 0.8 (0.6-1.1) mg/dl Glucose 118 H (70-105) mg/dL Calcium 8.7 (8.6-10.4) mg/dl Adrenal panel 05/04/19 Range/Units 05:45 Sodium 138 (133-145) mmol/L Potassium 3.7 (3.3-5.1) mmol/L Chloride 100 (96-108) mmol/L Carbon Dioxide 24 (22-30) mmol/L BUN 10 (6-20) mg/dl Creatinine 0.8 (0.6-1.1) mg/dl Glucose 118 H (70-105) mg/dL Calcium 8.7 (8.6-10.4) mg/dl Total Bilirubin 0.7 (0.0-1.0) mg/dL AST 17 (0-37) U/l ALT 10 (0-40) U/l Alkaline Phosphatase 93 (39-117) U/L Total Protein 6.4 (5.9-8.4) gm/dL Albumin 2.7 L (3.2-5.2) gm/dL Assessment and Plan (1) Small bowel obstruction due to postoperative adhesions Status: Acute Assessment and plan: Patient is clinically stable. She is allowed to have ice chips and popsicles. We'll continue present treatment Patient has mild postoperative ileus and I will delay advancing diet until she starts to have bowel movements. Follow-up abdominal x-ray will be performed tomorrow. Current Visit: Yes - Time Spent With Patient Total time spent is greater than 50% in coordination of care (as documented) at patient's floor/unit and/or counseling patient:
[2019-05-04] MEDS ORDERED: ALBUTEROL SULFATE 2.5 MG/3 ML NEBULIZER NEB PRN (15:57)
--- NOTE | 2019-05-04 16:18 | Surgical Pathology Report ---
HISTOLOGY SPECIMEN MICROSCOPIC DIAGNOSIS SPECIMEN A - SMALL BOWEL, PARTIAL EXCISION: -- SEROSAL ACUTE/CHRONIC INFLAMMATION AND ADHESIONS. -- VIABLE MARGINS OF RESECTION. SPECIMEN B - APPENDIX, APPENDECTOMY: -- APPENDIX WITH FIBROUS OBLITERATION OF THE TIP. SPECIMEN C - SMALL BOWEL, PREVIOUS ANASTOMOSIS, EXCISION: -- SMALL BOWEL WITH NO DIAGNOSTIC ALTERATIONS. -- VIABLE MARGINS OF RESECTION. (RLF:adj) GROSS DESCRIPTION Specimen A: Received in formalin labeled small bowel, is an unoriented segment of small bowel. The specimen is received stapled at both ends. The specimen measures 14 cm in length by up to 3 cm greatest diameter. The serosal surface is noteable for adherent fibrinopurulent material and puckering. There is attached lobulated yellow adipose tissue. The margins are removed and the specimen is opened to reveal plicated witt-brown mucosa. No mass or lesion is identified. No lymph nodes are grossly identified. Gore Seamer sections submitted: A1 - margins; A2-A3 - desk representative sections through area of serosal exudate and puckering; A4 - grossly normal small bowel away from area of puckering. Specimen B: Received in formalin labeled appendix per requisition, is a 5.6 cm in length by up to 0.5 cm greatest diameter appendix specimen. There is abundant attached yellow adipose tissue. The serosal surface is witt-pink, smooth and unremarkable. The appendix wall is up to 0.2 cm in greatest thickness. The mucosa is white-witt and unremarkable. Gore Seamer sections submitted in one cassette with the resection margin inked black. Specimen C: Received in formalin labeled small bowel previous anastomosis per requisition, is a portion of small bowel with prior anastomotic site. It is received stapled closed. The serosal surface is witt-purple and unremarkable. The specimen is opened to reveal witt-brown plicated mucosa. One possible polyp is identified measuring 0.6 x 0.5 x 0.4 cm. There is a separate detached fragment of small bowel that measures 4.2 x 1.1 x 1.2 cm. Gore Seamer sections submitted: C1 - margins; C2 - previous anastomosis; C3 - possible polyp, bisected; C4 - desk representative section of separate tissue fragment. (EBD:adj) Electronically Signed by: Sherry Cordoba M.D.
[2019-05-04] MEDS: LORazepam 2 MG/ML VIAL IV PRN (17:36)
[2019-05-05] MEDS: LACTATED RINGERS 1,000 ML IV SCH ×4 (01:52→17:55)
[2019-05-05] MEDS: ONDANSETRON 4 MG/2 ML VIAL IV PRN ×2 (02:15→20:18)
[2019-05-05] MEDS: HYDROmorphone 2 MG/ML VIAL IV PRN ×8 (02:16→23:50)
[2019-05-05] MEDS: PIPERACILLIN SODIUM/TAZOBACTAM 3.375 GM in DEXTROSE 5% IN WATER 50 ML IV SCH ×4 (05:54→23:51)
[2019-05-05] MEDS: METOCLOPRAMIDE 10 MG/2 ML VIAL IV SCH ×4 (05:54→23:49)
[2019-05-05] MEDS: 0.9 % SODIUM CHLORIDE 10 ML SYRINGE IV SCH ×3 (05:55→20:09)
[2019-05-05 06:47] LABS: Basophils # (Auto) 0.01 K/mcL (0.00-0.30); Basophils % (Auto) 0.1 % (0.0-2.0); Eosinophils # (Auto) 0.19 K/mcL (0.00-0.70); Eosinophils % (Auto) 2.3 % (0.0-7.0); Granulocytes % (Auto) 75.7 % (38.0-78.0); Hematocrit 36.6 % (34.1-44.9); Hemoglobin 11.8 g/dL (11.2-15.7); Lymphocytes % (Auto) 11.9 % (15.5-49.0); Mean Cell Volume 88.2 fL (80.0-100.0); Mean Corpuscular HGB Conc 32.2 g/dL (31.0-36.0); Mean Platelet Volume 10.6 fL (7.4-10.4); Monocytes # (Auto) 0.84 K/mcL (0.10-0.90); Platelet Count 303 K/mcL (140-440); RBC 4.15 M/mcL (3.59-5.38); WBC 8.4 K/mcL (4.50-11.00)
[2019-05-05 07:13] LABS: ALT/SGPT 15 U/l (0-40); AST/SGOT 21 U/l (0-37); Albumin 3.1 gm/dL (3.2-5.2); Albumin/Globulin Ratio 0.9 (1.0-2.3); Alkaline Phosphatase 72 U/L (39-117); Bilirubin,Direct 0.2 mg/dL (0.0-0.3); Bilirubin,Total 0.6 mg/dL (0.0-1.0); Blood Urea Nitrogen 12 mg/dl (6-20); Calcium 8.9 mg/dl (8.6-10.4); Carbon Dioxide 26 mmol/L (22-30); Chloride 96 mmol/L (96-108); Globulin 3.5 gm/dL (2.2-3.7); Glomerular Filtration Rate 76; Glucose 112 mg/dL (70-105); Lactate Dehydrogenase 167 U/L (94-250); Phosphorous 3.9 mg/dL (2.7-4.5); Triglycerides 71 mg/dl (<150); Uric Acid 2.3 mg/dL (2.5-8.0)
[2019-05-05] MEDS ORDERED: FLU VACC QS2019-20(6MOS UP)/PF 60 MCG/0.5 ML SYRINGE IM ONE (10:00)
--- NOTE | 2019-05-05 10:24 | XRay Report ---
CLINICAL INFORMATION: FOLLOW -UP OF SMALL BOWEL ileus COMPARISON: 07/18/2013 plain films an abdomen and pelvic CT 05/01/2000 eight FINDINGS: The stomach, small and large bowel are mildly dilated with scattered air-fluid levels most compatible with postoperative ileus. No free air, soft tissue mass or organomegaly. IMPRESSION: Moderate postoperative ileus Interpreted and Authenticated by: Rg Yang 05/05/19
--- NOTE | 2019-05-05 14:55 | General Surgery Progress Note ---
Subjective Patient reports: feels better, pain is less, flatus, no bowel movement, afebrile Narrative: Note initiated : 05/05/19 at 2:53 pm Service Date, if different from initiated Date: [] Patient: Ana Laura Clemons 48 y/o F admitted on 05/01/19 for Abdominal Pain. Chief Complaint: [Patient is stable, but she has not had bowel movements. She still has some flatus. She complains of thirst and hunger. White blood count 8.4, hemoglobin 11.8, hematocrit 36.6. X-rays revealed dilated loops of small bowel but with minimal bowel gas in colon.] Objective Temp Pulse Resp BP Pulse Ox 98.3 F 95 H 14 153/87 93 05/05/19 11:47 05/05/19 11:47 05/05/19 11:47 05/05/19 11:47 05/05/19 11:47 - Additional Data Intake & Output - Last 24 hours: Intake & Output 05/03/19 05/04/19 05/05/19 05/06/19 05:59 05:59 05:59 05:59 Intake Total 3650 3753.0909 2480 1150 Output Total 900 3950 601 Balance 2750 -196.9091 1879 1150 Weight 200 lb 8 oz 203 lb 205 lb - General physical appearance well developed, well nourished, no distress, moderate pain - Eyes PERRL, normal ocular movement - ENT normal pinna, normal nares, normal mucosa, no hearing loss, no congestion - Neck no masses, no bruits, trachea midline, no lymphadenopathy, no venous distension - Respiratory normal expansion, normal respiratory effort, clear to auscultation - Cardiovascular Cardiovascular exam: Present: normal rate and rhythm, RRR, +S1, +S2. Absent: JVD, tachycardia - Abdomen distended (abdomen is distended, but she does have good active bowel sounds; incision looks good) - Integumentary no rash, no growths, no abnormal pigmentation - Neurologic normal coordination, normal sensation - Musculoskeletal normal gait, normal posture - Psychiatric oriented to time, oriented to person, oriented to place, speech is normal, memory intact - Labs 05/05/19 05:40 05/05/19 05:40 Diabetes panel 05/05/19 Range/Units 05:40 Sodium 135 (133-145) mmol/L Potassium 3.8 (3.3-5.1) mmol/L Chloride 96 (96-108) mmol/L Carbon Dioxide 26 (22-30) mmol/L BUN 12 (6-20) mg/dl Creatinine 0.9 (0.6-1.1) mg/dl Glucose 112 H (70-105) mg/dL Calcium 8.9 (8.6-10.4) mg/dl AST 21 (0-37) U/l ALT 15 (0-40) U/l Alkaline Phosphatase 72 (39-117) U/L Total Protein 6.6 (5.9-8.4) gm/dL Albumin 3.1 L (3.2-5.2) gm/dL Triglycerides 71 (<150) mg/dl Calcium panel 05/05/19 Range/Units 05:40 Calcium 8.9 (8.6-10.4) mg/dl Phosphorus 3.9 (2.7-4.5) mg/dL Albumin 3.1 L (3.2-5.2) gm/dL Pituitary panel 05/05/19 Range/Units 05:40 Sodium 135 (133-145) mmol/L Potassium 3.8 (3.3-5.1) mmol/L Chloride 96 (96-108) mmol/L Carbon Dioxide 26 (22-30) mmol/L BUN 12 (6-20) mg/dl Creatinine 0.9 (0.6-1.1) mg/dl Glucose 112 H (70-105) mg/dL Calcium 8.9 (8.6-10.4) mg/dl Adrenal panel 05/05/19 Range/Units 05:40 Sodium 135 (133-145) mmol/L Potassium 3.8 (3.3-5.1) mmol/L Chloride 96 (96-108) mmol/L Carbon Dioxide 26 (22-30) mmol/L BUN 12 (6-20) mg/dl Creatinine 0.9 (0.6-1.1) mg/dl Glucose 112 H (70-105) mg/dL Calcium 8.9 (8.6-10.4) mg/dl Total Bilirubin 0.6 (0.0-1.0) mg/dL AST 21 (0-37) U/l ALT 15 (0-40) U/l Alkaline Phosphatase 72 (39-117) U/L Total Protein 6.6 (5.9-8.4) gm/dL Albumin 3.1 L (3.2-5.2) gm/dL Assessment and Plan (1) Small bowel obstruction due to postoperative adhesions Status: Acute Assessment and plan: Patient is clinically stable. Dulcolax suppositories will be given to try to stimulate evacuation of her colon. Diet advance will be withheld until she is evacuating her colon and her dilated small bowel loops have started to decrease Current Visit: Yes - Time Spent With Patient Total time spent is greater than 50% in coordination of care (as documented) at patient's floor/unit and/or counseling patient:
[2019-05-05] MEDS: BISACODYL 10 MG SUPP.RECT PR SCH (15:42)
[2019-05-05] MEDS: LORazepam 2 MG/ML VIAL IV PRN (20:20)
[2019-05-06] MEDS: LACTATED RINGERS 1,000 ML IV SCH ×3 (01:14→20:19)
[2019-05-06] MEDS: HYDROmorphone 2 MG/ML VIAL IV PRN ×7 (02:57→22:50)
[2019-05-06] MEDS: METOCLOPRAMIDE 10 MG/2 ML VIAL IV SCH ×3 (06:07→17:55)
[2019-05-06] MEDS: PIPERACILLIN SODIUM/TAZOBACTAM 3.375 GM in DEXTROSE 5% IN WATER 50 ML IV SCH ×3 (06:11→17:55)
[2019-05-06] MEDS: ONDANSETRON 4 MG/2 ML VIAL IV PRN ×2 (06:28→15:30)
[2019-05-06] MEDS: 0.9 % SODIUM CHLORIDE 10 ML SYRINGE IV SCH ×3 (06:36→22:44)
[2019-05-06] MEDS: BISACODYL 10 MG SUPP.RECT PR SCH (07:03)
[2019-05-06] MEDS: LORazepam 2 MG/ML VIAL IV PRN ×2 (07:18→22:51)
[2019-05-06 07:30] LABS: Basophils # (Auto) 0.02 K/mcL (0.00-0.30); Basophils % (Auto) 0.3 % (0.0-2.0); Eosinophils % (Auto) 2.6 % (0.0-7.0); Granulocytes % (Auto) 71.7 % (38.0-78.0); Hemoglobin 11.2 g/dL (11.2-15.7); Lymphocytes # (Auto) 0.99 K/mcL (1.50-4.80); Lymphocytes % (Auto) 13.1 % (15.5-49.0); Mean Cell Volume 88.8 fL (80.0-100.0); Mean Platelet Volume 10.3 fL (7.4-10.4); Monocytes # (Auto) 0.93 K/mcL (0.10-0.90); Monocytes % (Auto) 12.3 % (1.0-12.0); Platelet Count 288 K/mcL (140-440); RBC 3.94 M/mcL (3.59-5.38); Red Cell Distribution Width 12.8 % (11.5-14.5); WBC 7.6 K/mcL (4.50-11.00)
[2019-05-06 07:44] LABS: ALT/SGPT 18 U/l (0-40); AST/SGOT 21 U/l (0-37); Albumin 2.7 gm/dL (3.2-5.2); Albumin/Globulin Ratio 0.8 (1.0-2.3); Alkaline Phosphatase 76 U/L (39-117); Bilirubin,Direct 0.2 mg/dL (0.0-0.3); Bilirubin,Total 0.7 mg/dL (0.0-1.0); Blood Urea Nitrogen 9 mg/dl (6-20); Calcium 8.4 mg/dl (8.6-10.4); Carbon Dioxide 27 mmol/L (22-30); Chloride 98 mmol/L (96-108); Globulin 3.4 gm/dL (2.2-3.7); Glomerular Filtration Rate 103; Glucose 115 mg/dL (70-105); Lactate Dehydrogenase 181 U/L (94-250); Phosphorous 2.9 mg/dL (2.7-4.5); Triglycerides 91 mg/dl (<150)
--- NOTE | 2019-05-06 08:28 | XRay Report ---
CLINICAL INFORMATION: FOLLOW -UP OF SMALL BOWEL ileus COMPARISON: 05/05/2019 postoperative films FINDINGS: Stomach, small and large bowel show mild persistent dilatation with scattered air-fluid levels in the upright film compatible with moderate postoperative ileus. No free air. IMPRESSION: Moderate postoperative ileus Interpreted and Authenticated by: Rg Yang 05/06/19
[2019-05-06] MEDS: ACETAMINOPHEN 1,000 MG/100 ML BOTTLE IV PRN ×3 (09:36→20:22)
[2019-05-06] MEDS: MAGNESIUM HYDROXIDE 30 ML ORAL.SUSP PO SCH ×5 (10:54→18:16)
[2019-05-07] MEDS: METOCLOPRAMIDE 10 MG/2 ML VIAL IV SCH ×5 (00:24→23:55)
[2019-05-07] MEDS: PIPERACILLIN SODIUM/TAZOBACTAM 3.375 GM in DEXTROSE 5% IN WATER 50 ML IV SCH ×5 (00:24→23:55)
[2019-05-07] MEDS: HYDROmorphone 2 MG/ML VIAL IV PRN ×5 (03:29→19:37)
[2019-05-07] MEDS: LACTATED RINGERS 1,000 ML IV SCH ×3 (05:07→14:49)
[2019-05-07] MEDS: 0.9 % SODIUM CHLORIDE 10 ML SYRINGE IV SCH ×3 (06:00→21:11)
[2019-05-07] MEDS: BISACODYL 10 MG SUPP.RECT PR SCH (11:00)
[2019-05-07] MEDS: MAGNESIUM HYDROXIDE 30 ML ORAL.SUSP PO SCH (11:20)
--- NOTE | 2019-05-07 12:38 | XRay Report ---
CLINICAL INFORMATION: FOLLOW -UP OF SMALL BOWEL OBSTRUCTION COMPARISON: 05/06/2000 FINDINGS: The stomach and multiple loops of small bowel in the upper abdomen are mildly dilated and demonstrate air-fluid levels on the upright film. On today's examination, there is only minimal gas appreciated in the distal small bowel and colon There is no free air, pathologic calcification or soft tissue mass IMPRESSION: Possible recurrent small bowel obstruction. Consider small bowel follow-through Interpreted and Authenticated by: Rg Yang 05/07/19
[2019-05-07 13:01] LABS: Basophils # (Auto) 0.02 K/mcL (0.00-0.30); Basophils % (Auto) 0.2 % (0.0-2.0); Eosinophils # (Auto) 0.16 K/mcL (0.00-0.70); Eosinophils % (Auto) 1.6 % (0.0-7.0); Granulocytes % (Auto) 79.9 % (38.0-78.0); Hematocrit 35.4 % (34.1-44.9); Hemoglobin 11.6 g/dL (11.2-15.7); Lymphocytes # (Auto) 1.17 K/mcL (1.50-4.80); Mean Cell Volume 88.3 fL (80.0-100.0); Mean Corpuscular HGB Conc 32.8 g/dL (31.0-36.0); Mean Platelet Volume 10.3 fL (7.4-10.4); Monocytes # (Auto) 0.62 K/mcL (0.10-0.90); Monocytes % (Auto) 6.3 % (1.0-12.0); Platelet Count 355 K/mcL (140-440); RBC 4.01 M/mcL (3.59-5.38); Red Cell Distribution Width 12.7 % (11.5-14.5); WBC 9.8 K/mcL (4.50-11.00)
[2019-05-07 13:19] LABS: ALT/SGPT 22 U/l (0-40); AST/SGOT 29 U/l (0-37); Albumin/Globulin Ratio 0.9 (1.0-2.3); Alkaline Phosphatase 79 U/L (39-117); Bilirubin,Total 0.6 mg/dL (0.0-1.0); Blood Urea Nitrogen 7 mg/dl (6-20); Calcium 8.6 mg/dl (8.6-10.4); Carbon Dioxide 29 mmol/L (22-30); Chloride 96 mmol/L (96-108); Globulin 3.3 gm/dL (2.2-3.7); Glomerular Filtration Rate 103; Glucose 114 mg/dL (70-105); Lactate Dehydrogenase 210 U/L (94-250); Phosphorous 2.6 mg/dL (2.7-4.5); Triglycerides 76 mg/dl (<150); Uric Acid 1.6 mg/dL (2.5-8.0)
[2019-05-07 13:22] LABS: Bilirubin,Direct < 0.2 mg/dL (0.0-0.3)
[2019-05-07] MEDS ORDERED: POTASSIUM PHOSPHATE 40 MEQ in DEXTROSE 5% IN WATER 500 ML IV ONE (15:00)
[2019-05-07] MEDS: oxyCODONE/APAP 10/325MG TABLET PO PRN ×3 (15:45→23:25)
--- NOTE | 2019-05-07 17:34 | General Surgery Progress Note ---
Subjective Narrative: Note initiated : 05/07/19 at 5:34 pm Service Date, if different from initiated Date: [] Patient: Ana Laura Clemons 48 y/o F admitted on 05/01/19 for Abdominal Pain. Chief Complaint: [] Objective Temp Pulse Resp BP Pulse Ox 97.8 F 82 20 145/81 92 05/07/19 16:00 05/07/19 16:00 05/07/19 16:00 05/07/19 16:00 05/07/19 16:00 - Additional Data Intake & Output - Last 24 hours: Intake & Output 05/05/19 05/06/19 05/07/19 05/08/19 05:59 05:59 05:59 05:59 Intake Total 2480 4270 4120 1100 Output Total 601 Balance 1879 4270 4120 1100 Weight 205 lb 205 lb 8 oz 206 lb 4.8 oz 206 lb 4.8 oz - Labs 05/07/19 11:34 05/07/19 11:34 Diabetes panel 05/07/19 Range/Units 11:34 Sodium 135 (133-145) mmol/L Potassium 3.4 (3.3-5.1) mmol/L Chloride 96 (96-108) mmol/L Carbon Dioxide 29 (22-30) mmol/L BUN 7 (6-20) mg/dl Creatinine 0.7 (0.6-1.1) mg/dl Glucose 114 H (70-105) mg/dL Calcium 8.6 (8.6-10.4) mg/dl AST 29 (0-37) U/l ALT 22 (0-40) U/l Alkaline Phosphatase 79 (39-117) U/L Total Protein 6.3 (5.9-8.4) gm/dL Albumin 3.0 L (3.2-5.2) gm/dL Triglycerides 76 (<150) mg/dl Calcium panel 05/07/19 Range/Units 11:34 Calcium 8.6 (8.6-10.4) mg/dl Phosphorus 2.6 L (2.7-4.5) mg/dL Albumin 3.0 L (3.2-5.2) gm/dL Pituitary panel 05/07/19 Range/Units 11:34 Sodium 135 (133-145) mmol/L Potassium 3.4 (3.3-5.1) mmol/L Chloride 96 (96-108) mmol/L Carbon Dioxide 29 (22-30) mmol/L BUN 7 (6-20) mg/dl Creatinine 0.7 (0.6-1.1) mg/dl Glucose 114 H (70-105) mg/dL Calcium 8.6 (8.6-10.4) mg/dl Adrenal panel 05/07/19 Range/Units 11:34 Sodium 135 (133-145) mmol/L Potassium 3.4 (3.3-5.1) mmol/L Chloride 96 (96-108) mmol/L Carbon Dioxide 29 (22-30) mmol/L BUN 7 (6-20) mg/dl Creatinine 0.7 (0.6-1.1) mg/dl Glucose 114 H (70-105) mg/dL Calcium 8.6 (8.6-10.4) mg/dl Total Bilirubin 0.6 (0.0-1.0) mg/dL AST 29 (0-37) U/l ALT 22 (0-40) U/l Alkaline Phosphatase 79 (39-117) U/L Total Protein 6.3 (5.9-8.4) gm/dL Albumin 3.0 L (3.2-5.2) gm/dL Assessment and Plan (1) Small bowel obstruction due to postoperative adhesions Status: Acute Assessment and plan: Patient is clinically stable. Dulcolax suppositories will be given to try to stimulate evacuation of her colon. Diet advance will be withheld until she is evacuating her colon and her dilated small bowel loops have started to decrease Current Visit: Yes - Time Spent With Patient Total time spent is greater than 50% in coordination of care (as documented) at patient's floor/unit and/or counseling patient:
[2019-05-08] MEDS: LACTATED RINGERS 1,000 ML IV SCH ×5 (00:46→22:01)
[2019-05-08] MEDS: HYDROmorphone 2 MG/ML VIAL IV PRN ×3 (02:41→20:57)
[2019-05-08] MEDS: oxyCODONE/APAP 10/325MG TABLET PO PRN ×6 (03:29→23:54)
[2019-05-08] MEDS: METOCLOPRAMIDE 10 MG/2 ML VIAL IV SCH ×5 (05:39→23:49)
[2019-05-08] MEDS: PIPERACILLIN SODIUM/TAZOBACTAM 3.375 GM in DEXTROSE 5% IN WATER 50 ML IV SCH ×5 (05:39→23:49)
[2019-05-08] MEDS: 0.9 % SODIUM CHLORIDE 10 ML SYRINGE IV SCH ×3 (05:40→22:05)
[2019-05-08] MEDS ORDERED: SIMETHICONE 80 MG TAB.CHEW CHEWED SCH (07:30)
[2019-05-08] MEDS: MAGNESIUM HYDROXIDE 30 ML ORAL.SUSP PO SCH ×5 (07:50→19:46)
--- NOTE | 2019-05-08 08:30 | XRay Report ---
CLINICAL INFORMATION: FOLLOW -UP OF SMALL BOWEL OBSTRUCTION COMPARISON: 05/07/2019 FINDINGS: The stomach and multiple loops of small bowel are moderately dilated air-fluid level on the upright film. Distal small bowel and colon are decompressed. No free air or soft tissue mass. IMPRESSION: Suspect recurrent distal small bowel obstruction. Consider: small bowel follow-through Interpreted and Authenticated by: Rg Yang 05/08/19
[2019-05-08] MEDS: BISACODYL 10 MG SUPP.RECT PR SCH (09:07)
[2019-05-08 14:23] LABS: ALT/SGPT 54 U/l (0-40); AST/SGOT 71 U/l (0-37); Albumin/Globulin Ratio 0.9 (1.0-2.3); Alkaline Phosphatase 94 U/L (39-117); Bilirubin,Direct < 0.2 mg/dL (0.0-0.3); Bilirubin,Total 0.5 mg/dL (0.0-1.0); Calcium 8.4 mg/dl (8.6-10.4); Carbon Dioxide 26 mmol/L (22-30); Chloride 99 mmol/L (96-108); Globulin 3.4 gm/dL (2.2-3.7); Glomerular Filtration Rate 109; Glucose 121 mg/dL (70-105); Lactate Dehydrogenase 294 U/L (94-250); Triglycerides 73 mg/dl (<150); Uric Acid 1.6 mg/dL (2.5-8.0)
[2019-05-08 14:31] LABS: Blood Urea Nitrogen 5 mg/dl (6-20)
--- NOTE | 2019-05-08 14:44 | General Surgery Progress Note ---
Subjective Patient reports: feels better, pain is less, tolerating liquids well, flatus, bowel movement, diarrhea, afebrile Narrative: Note initiated : 05/08/19 at 2:42 pm Service Date, if different from initiated Date: [] Patient: Ana Laura Clemons 48 y/o F admitted on 05/01/19 for Abdominal Pain. Chief Complaint: [patient continues to improve. She has had multiple bowel movements but still has significant abdominal distention. She has tolerated liquids and does not have nausea or vomiting. She is afebrile. Inpatient panel is unremarkable. CBC from this morning is still pending.abdominal x-rays still show significant distention of her small bowel.] Objective Temp Pulse Resp BP Pulse Ox 96.7 F L 86 16 163/95 94 05/08/19 12:00 05/08/19 12:00 05/08/19 12:00 05/08/19 12:00 05/08/19 12:00 - Additional Data Intake & Output - Last 24 hours: Intake & Output 05/06/19 05/07/19 05/08/19 05/09/19 05:59 05:59 05:59 05:59 Intake Total 4270 4120 3660 50 Balance 4270 4120 3660 50 Weight 205 lb 8 oz 206 lb 4.8 oz 210 lb 8 oz - General physical appearance well developed, well nourished, no distress, no pain - Eyes PERRL, normal ocular movement - ENT normal pinna, normal nares, normal mucosa, no hearing loss, no congestion - Neck no masses, no bruits, trachea midline, no lymphadenopathy, no venous distension - Respiratory normal expansion, normal respiratory effort, clear to auscultation - Cardiovascular Cardiovascular exam: Present: normal rate and rhythm, RRR, +S1, +S2. Absent: JVD, tachycardia - Abdomen non tender, bowel sounds (present), surgical scars (none), masses (none), distended (moderate abdominal distention; incision looks good) - Integumentary no rash, no growths, no abnormal pigmentation - Neurologic normal coordination, normal sensation - Musculoskeletal normal gait, normal posture - Psychiatric oriented to time, oriented to person, oriented to place, speech is normal, memory intact - Labs 05/07/19 11:34 05/08/19 11:24 Diabetes panel 05/08/19 Range/Units 11:24 Sodium 136 (133-145) mmol/L Potassium 3.7 (3.3-5.1) mmol/L Chloride 99 (96-108) mmol/L Carbon Dioxide 26 (22-30) mmol/L BUN 5 L (6-20) mg/dl Creatinine 0.6 (0.6-1.1) mg/dl Glucose 121 H (70-105) mg/dL Calcium 8.4 L (8.6-10.4) mg/dl AST 71 H (0-37) U/l ALT 54 H (0-40) U/l Alkaline Phosphatase 94 (39-117) U/L Total Protein 6.4 (5.9-8.4) gm/dL Albumin 3.0 L (3.2-5.2) gm/dL Triglycerides 73 (<150) mg/dl Calcium panel 05/08/19 Range/Units 11:24 Calcium 8.4 L (8.6-10.4) mg/dl Phosphorus 3.0 (2.7-4.5) mg/dL Albumin 3.0 L (3.2-5.2) gm/dL Pituitary panel 05/08/19 Range/Units 11:24 Sodium 136 (133-145) mmol/L Potassium 3.7 (3.3-5.1) mmol/L Chloride 99 (96-108) mmol/L Carbon Dioxide 26 (22-30) mmol/L BUN 5 L (6-20) mg/dl Creatinine 0.6 (0.6-1.1) mg/dl Glucose 121 H (70-105) mg/dL Calcium 8.4 L (8.6-10.4) mg/dl Adrenal panel 05/08/19 Range/Units 11:24 Sodium 136 (133-145) mmol/L Potassium 3.7 (3.3-5.1) mmol/L Chloride 99 (96-108) mmol/L Carbon Dioxide 26 (22-30) mmol/L BUN 5 L (6-20) mg/dl Creatinine 0.6 (0.6-1.1) mg/dl Glucose 121 H (70-105) mg/dL Calcium 8.4 L (8.6-10.4) mg/dl Total Bilirubin 0.5 (0.0-1.0) mg/dL AST 71 H (0-37) U/l ALT 54 H (0-40) U/l Alkaline Phosphatase 94 (39-117) U/L Total Protein 6.4 (5.9-8.4) gm/dL Albumin 3.0 L (3.2-5.2) gm/dL Assessment and Plan (1) Small bowel obstruction due to postoperative adhesions Status: Acute Assessment and plan: Patient is clinically stable improved. She still has major distention of her small bowel. Current Visit: Yes - Time Spent With Patient Total time spent is greater than 50% in coordination of care (as documented) at patient's floor/unit and/or counseling patient:
[2019-05-08 14:45] LABS: Basophils # (Auto) 0.02 K/mcL (0.00-0.30); Basophils % (Auto) 0.2 % (0.0-2.0); Eosinophils # (Auto) 0.26 K/mcL (0.00-0.70); Eosinophils % (Auto) 2.3 % (0.0-7.0); Granulocytes % (Auto) 76.8 % (38.0-78.0); Hematocrit 34.4 % (34.1-44.9); Hemoglobin 11.3 g/dL (11.2-15.7); Lymphocytes # (Auto) 1.51 K/mcL (1.50-4.80); Lymphocytes % (Auto) 13.5 % (15.5-49.0); Mean Cell Volume 87.1 fL (80.0-100.0); Mean Corpuscular HGB Conc 32.8 g/dL (31.0-36.0); Mean Platelet Volume 10.5 fL (7.4-10.4); Monocytes % (Auto) 7.2 % (1.0-12.0); Platelet Count 351 K/mcL (140-440); RBC 3.95 M/mcL (3.59-5.38); Red Cell Distribution Width 12.8 % (11.5-14.5); WBC 11.2 K/mcL (4.50-11.00)
[2019-05-08] MEDS: LORazepam 2 MG/ML VIAL IV PRN (22:10)
[2019-05-09] MEDS: oxyCODONE/APAP 10/325MG TABLET PO PRN ×3 (04:28→13:33)
[2019-05-09] MEDS: PIPERACILLIN SODIUM/TAZOBACTAM 3.375 GM in DEXTROSE 5% IN WATER 50 ML IV SCH ×2 (06:03→11:52)
[2019-05-09] MEDS: 0.9 % SODIUM CHLORIDE 10 ML SYRINGE IV SCH ×2 (06:03→13:32)
[2019-05-09] MEDS: METOCLOPRAMIDE 10 MG/2 ML VIAL IV SCH ×2 (06:03→11:52)
[2019-05-09] MEDS: MAGNESIUM HYDROXIDE 30 ML ORAL.SUSP PO SCH (09:39)
[2019-05-09] MEDS: LACTATED RINGERS 1,000 ML IV SCH (09:40)
--- NOTE | 2019-05-09 11:12 | Discharge Summary ---
Providers - Providers Patient information: Note initiated : 05/09/19 at 11:07 am Service Date, if different from initiated Date: [] Patient: Ana Laura Clemons 48 y/o F admitted on 05/01/19 for Abdominal Pain. Chief Complaint: [] Date of admission: 05/01/19 Discharge date: 05/09/19 Attending physician: Ata Jasmine Hospitalization Hospital Course: 48-year-old female admitted on 01 May with a four-day history of recurrent abdominal pain with episodic nausea, vomiting. She had significant distention of her abdomen. Abdominal x-rays reveal dilated loops of bowel and CT showed findings compatible with acute small bowel obstruction. She underwent emergency laparotomy and had multiple areas of near complete small bowel obstruction due to extensive adhesions. Total small bowel adhesion lysis was carried out. There were 2 areas that were too matted and thickened to safely separate. These 2 sections were resected and primary anastomosis was carried. Appendectomy was done because the appendix was lying along the retroperitoneum and if she should develop appendicitis be very difficult to get to that area. The patient developed significant ileus. In the postoperative period and it t ook about 5 days for her to develop more intestinal activity. She was finally advanced to clear liquids and her diet was gradually advanced. Abdominal x-rays have shown gradual decrease in small bowel gas but she still has moderate amount of gas in her colon. She has tolerated a full liquid diet 3 days and has had regular bowel movements daily. She is stable for discharge home. Discharge diagnosis: small bowel obstruction Secondary discharge diagnosis: Extensive intestinal adhesions with obstruction Polysubstance abuse. Postoperative adynamic ileus Reason for admission: recurrent abdominal pain, nausea and vomiting Procedures: Exploratory laparotomy with total intestinal adhesiolysis; small bowel resection 2 with primary anastomosis; appendectomy Pertinent studies/significant findings: CT of abdomen and pelvis with contrast Complications: 9 Exam Temp Pulse Resp BP Pulse Ox 98.4 F 93 H 20 142/87 92 05/09/19 07:17 05/09/19 06:50 05/09/19 07:17 05/09/19 07:17 05/09/19 07:17 - General physical appearance well developed, well nourished, no distress - Eyes PERRL, normal ocular movement - ENT normal pinna, normal nares, normal mucosa, no hearing loss, no congestion - Head Head exam IM: Present: atraumatic, normocephalic - Neck no masses, no bruits, trachea midline, no lymphadenopathy, no venous distension - Cardiovascular Cardiovascular exam IM: Present: normal rate and rhythm - Respiratory normal expansion, normal respiratory effort, clear to auscultation - Abdomen Abdomen: Present: soft, bowel sounds, distended (abdomen is mildly distended but soft; she has good active bowel sounds; incision looks good; no significant tenderness noted) Hernia: Present: none - Genitourinary Present: normal external genitalia - Integumentary Present: no rash, no growths, no abnormal pigmentation - Neurologic Present: normal coordination, normal sensation - Musculoskeletal Present: normal gait, normal posture - Psychiatric Present: oriented to time, oriented to person, oriented to place, speech is normal, memory intact Discharge Plan - Patient/Caregiver Discharge Instructions Activity: increase activity as tolerated Diet: Regular Diet (may gradually increase regular diet as tolerated) Prescriptions: Polyethylene Glycol 3350 [Miralax] 17 gm PO BID #60 powd.pack Transmission Status: Pending to [facility] oxyCODONE/APAP [Percocet 10-325Mg] 1 tab PO Q4HP PRN #60 tablet PRN Reason: Per Pain Protocol Transmission Status: Received by [facility] Metoclopramide [Reglan] 10 mg PO ACHS #60 tab Transmission Status: Pending to [facility] - Follow up Plan Follow up with: Wong Mcnair ARNP [Primary Care Provider] - Ata Jasmine MD [Physician] - 05/18/19 (please call to schedule an appt. time) Disposition: Home, Self-Care Prognosis: Good Rehab Potential: Good I certify that the patient requires SNF services.: No Overall status at discharge: patient is progressing back to baseline Pending Studies Resuscitation Status Full Code Diet Regular Diet Start Sat May 09 110 Albuterol Sulfate (Ventolin) 2.5 mg NEB Q6H PRN PRN Reason: Shortness Of Breath Last Admin: 05/04/19 16:05 Dose: 2.5 mg Documented by: HILDA Benzocaine (Cetacaine) 1 spray TOPICAL PRN PRN PRN Reason: Sore Throat Last Admin: 05/04/19 05:11 Dose: 1 spray Documented by: Admin: 05/03/19 23:29 Dose: 1 spray Documented by: Admin: 05/03/19 21:58 Dose: 1 spray Documented by: Admin: 05/03/19 19:15 Dose: 1 spray Documented by: Admin: 05/03/19 17:36 Dose: 1 spray Documented by: Admin: 05/03/19 14:44 Dose: 1 spray Documented by: Admin: 05/03/19 13:09 Dose: 1 spray Documented by: Admin: 05/03/19 05:13 Dose: 1 spray Documented by: Admin: 05/02/19 21:54 Dose: 1 spray Documented by: Admin: 05/02/19 18:56 Dose: 1 spray Documented by: Admin: 05/02/19 17:24 Dose: 1 spray Documented by: Admin: 05/02/19 08:28 Dose: 1 spray Documented by: Admin: 05/02/19 04:47 Dose: 1 spray Documented by: Admin: 05/02/19 03:02 Dose: 1 spray Documented by: Admin: 05/01/19 19:33 Dose: 1 spray Documented by: Admin: 05/01/19 17:16 Dose: 1 spray Documented by: SHAWN Hydromorphone HCl (Dilaudid) 1 mg IV Q2HP PRN; Protocol PRN Reason: Per Pain Protocol Last Admin: 05/08/19 20:57 Dose: 1 mg Documented by: Admin: 05/08/19 09:05 Dose: 1 mg Documented by: Admin: 05/08/19 02:41 Dose: 1 mg Documented by: Admin: 05/07/19 19:37 Dose: 1 mg Documented by: Admin: 05/07/19 13:34 Dose: 1 mg Documented by: Admin: 05/07/19 11:14 Dose: 1 mg Documented by: Admin: 05/07/19 08:11 Dose: 1 mg Documented by: [email or web address] Admin: 05/07/19 03:29 Dose: 1 mg Documented by: [email or web address] Admin: 05/06/19 22:50 Dose: 1 mg Documented by: Admin: 05/06/19 18:21 Dose: 1 mg Documented by: Admin: 05/06/19 16:13 Dose: 1 mg Documented by: Admin: 05/06/19 14:16 Dose: 1 mg Documented by: Admin: 05/06/19 10:53 Dose: 1 mg Documented by: Admin: 05/06/19 06:28 Dose: 1 mg Documented by: Admin: 05/06/19 02:57 Dose: 1 mg Documented by: Admin: 05/05/19 23:50 Dose: 1 mg Documented by: Admin: 05/05/19 20:08 Dose: 1 mg Documented by: Admin: 05/05/19 17:54 Dose: 1 mg Documented by: Admin: 05/05/19 15:42 Dose: 1 mg Documented by: Admin: 05/05/19 11:15 Dose: 1 mg Documented by: Admin: 05/05/19 07:55 Dose: 1 mg Documented by: Admin: 05/05/19 04:40 Dose: 1 mg Documented by: Admin: 05/05/19 02:16 Dose: 1 mg Documented by: Admin: 05/04/19 22:35 Dose: 1 mg Documented by: Admin: 05/04/19 13:22 Dose: 1 mg Documented by: Admin: 05/04/19 05:10 Dose: 1 mg Documented by: Admin: 05/04/19 00:23 Dose: 1 mg Documented by: Admin: 05/03/19 21:57 Dose: 1 mg Documented by: Admin: 05/03/19 19:14 Dose: 1 mg Documented by: Admin: 05/03/19 14:55 Dose: 1 mg Documented by: [email or web address] Admin: 05/03/19 01:29 Dose: 1 mg Documented by: Admin: 05/02/19 21:54 Dose: 1 mg Documented by: Admin: 05/02/19 18:55 Dose: 1 mg Documented by: Admin: 05/02/19 16:07 Dose: 1 mg Documented by: Admin: 05/02/19 12:52 Dose: 1 mg Documented by: [email or web address] Admin: 05/02/19 08:21 Dose: 1 mg Documented by: Admin: 05/02/19 04:47 Dose: 1 mg Documented by: Admin: 05/02/19 03:03 Dose: 1 mg Documented by: Admin: 05/01/19 23:27 Dose: 1 mg Documented by: Admin: 05/01/19 19:32 Dose: 1 mg Documented by: OJ Lactated Ringer's (Lactated Ringers) 1,000 mls @ 125 mls/hr IV .Q8H MAHENDRA [facility] Admin: 05/09/19 09:40 Dose: 125 mls/hr Documented by: Infusion: 05/09/19 09:39 Dose: 0 mls/hr Documented by: Admin: 05/08/19 22:01 Dose: 125 mls/hr Documented by: Admin: 05/08/19 16:44 Dose: Not Given Documented by: Infusion: 05/08/19 12:48 Dose: 0 mls/hr Documented by: Admin: 05/08/19 07:56 Dose: Not Given Documented by: Admin: 05/08/19 04:48 Dose: 125 mls/hr Documented by: Admin: 05/08/19 00:46 Dose: Not Given Documented by: Infusion: 05/07/19 22:49 Dose: 125 mls/hr Documented by: Admin: 05/07/19 14:49 Dose: 125 mls/hr Documented by: [email or web address] Infusion: 05/07/19 14:47 Dose: 0 mls/hr Documented by: [email or web address] Admin: 05/07/19 08:00 Dose: Not Given Documented by: [email or web address] Admin: 05/07/19 05:07 Dose: 125 mls/hr Documented by: [email or web address] Infusion: 05/07/19 04:19 Dose: 125 mls/hr Documented by: [email or web address] Admin: 05/06/19 20:19 Dose: 125 mls/hr Documented by: [email or web address] Infusion: 05/06/19 17:37 Dose: 125 mls/hr Documented by: [email or web address] Admin: 05/06/19 09:37 Dose: 125 mls/hr Documented by: Infusion: 05/06/19 09:14 Dose: 125 mls/hr Documented by: Admin: 05/06/19 01:14 Dose: 125 mls/hr Documented by: Infusion: 05/06/19 01:14 Dose: 125 mls/hr Documented by: [email or web address] Admin: 05/05/19 17:55 Dose: 125 mls/hr Documented by: Infusion: 05/05/19 17:55 Dose: 125 mls/hr Documented by: Admin: 05/05/19 12:02 Dose: 125 mls/hr Documented by: Infusion: 05/05/19 09:52 Dose: 125 mls/hr Documented by: Admin: 05/05/19 01:52 Dose: 125 mls/hr Documented by: Infusion: 05/05/19 01:47 Dose: 125 mls/hr Documented by: Admin: 05/04/19 17:47 Dose: 125 mls/hr Documented by: Admin: 05/04/19 17:18 Dose: Not Given Documented by: Admin: 05/04/19 08:24 Dose: Not Given Documented by: Infusion: 05/04/19 05:59 Dose: 0 mls/hr Documented by: Admin: 05/03/19 21:59 Dose: 125 mls/hr Documented by: Admin: 05/03/19 17:32 Dose: Not Given Documented by: Infusion: 05/03/19 17:26 Dose: 125 mls/hr Documented by: Admin: 05/03/19 09:26 Dose: 125 mls/hr Documented by: Infusion: 05/03/19 09:26 Dose: 125 mls/hr Documented by: Admin: 05/03/19 01:29 Dose: 125 mls/hr Documented by: Infusion: 05/03/19 01:25 Dose: 125 mls/hr Documented by: Admin: 05/03/19 00:02 Dose: Not Given Documented by: Admin: 05/02/19 17:25 Dose: 125 mls/hr Documented by: [email or web address] Infusion: 05/02/19 17:25 Dose: 0 mls/hr Documented by: Admin: 05/02/19 08:24 Dose: 125 mls/hr Documented by: Infusion: 05/02/19 08:23 Dose: 0 mls/hr Documented by: Admin: 05/02/19 00:36 Dose: Not Given Documented by: Infusion: 05/01/19 23:18 Dose: 125 mls/hr Documented by: Admin: 05/01/19 17:03 Dose: 125 mls/hr Documented by: SHAWN Piperacillin Sod/Tazobactam (Sod 3.375 gm/ Dextrose) 50 mls @ 100 mls/hr IV Q6H MAHENDRA; Protocol Last Infusion: 05/09/19 06:33 Dose: 0 mls/hr Documented by: Admin: 05/09/19 06:03 Dose: 100 mls/hr Documented by: Infusion: 05/09/19 00:19 Dose: 100 mls/hr Documented by: Admin: 05/08/19 23:49 Dose: 100 mls/hr Documented by: Infusion: 05/08/19 18:37 Dose: 100 mls/hr Documented by: [email or web address] Admin: 05/08/19 18:07 Dose: 100 mls/hr Documented by: Admin: 05/08/19 17:45 Dose: Not Given Documented by: Infusion: 05/08/19 06:09 Dose: 0 mls/hr Documented by: Admin: 05/08/19 05:39 Dose: 100 mls/hr Documented by: Infusion: 05/08/19 00:25 Dose: 100 mls/hr Documented by: Admin: 05/07/19 23:55 Dose: 100 mls/hr Documented by: Infusion: 05/07/19 18:34 Dose: 100 mls/hr Documented by: Admin: 05/07/19 18:04 Dose: 100 mls/hr Documented by: Infusion: 05/07/19 13:49 Dose: 100 mls/hr Documented by: Admin: 05/07/19 13:19 Dose: 100 mls/hr Documented by: Infusion: 05/07/19 06:28 Dose: 100 mls/hr Documented by: Admin: 05/07/19 05:58 Dose: 100 mls/hr Documented by: [email or web address] Infusion: 05/07/19 00:54 Dose: 100 mls/hr Documented by: [email or web address] Admin: 05/07/19 00:24 Dose: 100 mls/hr Documented by: [email or web address] Infusion: 05/06/19 18:25 Dose: 100 mls/hr Documented by: [email or web address] Admin: 05/06/19 17:55 Dose: 100 mls/hr Documented by: Infusion: 05/06/19 12:44 Dose: 0 mls/hr Documented by: Admin: 05/06/19 12:14 Dose: 100 mls/hr Documented by: Infusion: 05/06/19 06:59 Dose: 0 mls/hr Documented by: Admin: 05/06/19 06:11 Dose: 100 mls/hr Documented by: Infusion: 05/06/19 00:21 Dose: 100 mls/hr Documented by: Admin: 05/05/19 23:51 Dose: 100 mls/hr Documented by: Infusion: 05/05/19 18:24 Dose: 100 mls/hr Documented by: Admin: 05/05/19 17:54 Dose: 100 mls/hr Documented by: Infusion: 05/05/19 12:31 Dose: 100 mls/hr Documented by: Admin: 05/05/19 12:01 Dose: 100 mls/hr Documented by: Infusion: 05/05/19 06:24 Dose: 100 mls/hr Documented by: Admin: 05/05/19 05:54 Dose: 100 mls/hr Documented by: Infusion: 05/05/19 00:00 Dose: 100 mls/hr Documented by: [email or web address] Admin: 05/04/19 23:30 Dose: 100 mls/hr Documented by: [email or web address] Infusion: 05/04/19 18:08 Dose: 100 mls/hr Documented by: [email or web address] Admin: 05/04/19 17:38 Dose: 100 mls/hr Documented by: Infusion: 05/04/19 13:10 Dose: 0 mls/hr Documented by: Admin: 05/04/19 12:40 Dose: 100 mls/hr Documented by: Infusion: 05/04/19 05:34 Dose: 0 mls/hr Documented by: Admin: 05/04/19 05:04 Dose: 100 mls/hr Documented by: Infusion: 05/03/19 23:59 Dose: 100 mls/hr Documented by: Admin: 05/03/19 23:29 Dose: 100 mls/hr Documented by: Infusion: 05/03/19 17:30 Dose: 100 mls/hr Documented by: Admin: 05/03/19 17:00 Dose: 100 mls/hr Documented by: Infusion: 05/03/19 13:38 Dose: 100 mls/hr Documented by: Admin: 05/03/19 13:08 Dose: 100 mls/hr Documented by: Infusion: 05/03/19 05:42 Dose: 100 mls/hr Documented by: Admin: 05/03/19 05:12 Dose: 100 mls/hr Documented by: Infusion: 05/03/19 00:12 Dose: 100 mls/hr Documented by: Admin: 05/02/19 23:42 Dose: 100 mls/hr Documented by: Infusion: 05/02/19 17:55 Dose: 0 mls/hr Documented by: [email or web address] Admin: 05/02/19 17:24 Dose: 100 mls/hr Documented by: [email or web address] Infusion: 05/02/19 12:37 Dose: 0 mls/hr Documented by: [email or web address] Admin: 05/02/19 12:07 Dose: 100 mls/hr Documented by: [email or web address] Infusion: 05/02/19 06:00 Dose: 0 mls/hr Documented by: Admin: 05/02/19 05:29 Dose: 100 mls/hr Documented by: Admin: 05/02/19 00:37 Dose: Not Given Documented by: Infusion: 05/01/19 20:03 Dose: 100 mls/hr Documented by: Admin: 05/01/19 19:33 Dose: 100 mls/hr Documented by: Infusion: 05/01/19 17:33 Dose: 0 mls/hr Documented by: Admin: 05/01/19 17:03 Dose: 100 mls/hr Documented by: [email or web address] Lorazepam (Ativan) 1 mg IV Q6HP PRN PRN Reason: ANXIETY/SEDATION Last Admin: 05/08/19 22:10 Dose: 1 mg Documented by: Admin: 05/06/19 22:51 Dose: 1 mg Documented by: Admin: 05/06/19 07:18 Dose: 1 mg Documented by: Admin: 05/05/19 20:20 Dose: 1 mg Documented by: Admin: 05/04/19 17:36 Dose: 1 mg Documented by: RAPHAEL Magnesium Hydroxide (Milk Of Magnesia) 30 ml PO DAILY [facility] Last Admin: 05/09/19 09:39 Dose: 30 ml Documented by: Admin: 05/08/19 07:50 Dose: 30 ml Documented by: Admin: 05/07/19 11:20 Dose: 30 ml Documented by: LILIANE Metoclopramide HCl (Reglan) 10 mg IV Q6 [facility] Last Admin: 05/09/19 06:03 Dose: 10 mg Documented by: Admin: 05/08/19 23:49 Dose: 10 mg Documented by: Admin: 05/08/19 18:07 Dose: 10 mg Documented by: Admin: 05/08/19 16:49 Dose: Not Given Documented by: Admin: 05/08/19 05:39 Dose: 10 mg Documented by: Admin: 05/07/19 23:55 Dose: 10 mg Documented by: Admin: 05/07/19 18:04 Dose: 10 mg Documented by: Admin: 05/07/19 13:19 Dose: 10 mg Documented by: Admin: 05/07/19 05:57 Dose: 10 mg Documented by: Admin: 05/07/19 00:24 Dose: 10 mg Documented by: Admin: 05/06/19 17:55 Dose: 10 mg Documented by: Admin: 05/06/19 12:14 Dose: 10 mg Documented by: Admin: 05/06/19 06:07 Dose: 10 mg Documented by: Admin: 05/05/19 23:49 Dose: 10 mg Documented by: Admin: 05/05/19 17:54 Dose: 10 mg Documented by: Admin: 05/05/19 12:01 Dose: 10 mg Documented by: Admin: 05/05/19 05:54 Dose: 10 mg Documented by: Admin: 05/04/19 23:28 Dose: 10 mg Documented by: Admin: 05/04/19 17:38 Dose: 10 mg Documented by: Admin: 05/04/19 12:40 Dose: 10 mg Documented by: Admin: 05/04/19 05:04 Dose: 10 mg Documented by: Admin: 05/03/19 23:29 Dose: 10 mg Documented by: Admin: 05/03/19 17:32 Dose: 10 mg Documented by: Admin: 05/03/19 13:08 Dose: 10 mg Documented by: Admin: 05/03/19 05:13 Dose: 10 mg Documented by: Admin: 05/02/19 23:42 Dose: 10 mg Documented by: Admin: 05/02/19 17:23 Dose: 10 mg Documented by: Admin: 05/02/19 12:07 Dose: 10 mg Documented by: Admin: 05/02/19 05:29 Dose: 10 mg Documented by: Admin: 05/01/19 23:27 Dose: 10 mg Documented by: Admin: 05/01/19 17:13 Dose: 10 mg Documented by: SHAWN Ondansetron HCl (Zofran) 4 mg IV Q4HP PRN; Protocol PRN Reason: Nausea And Vomiting Last Admin: 05/06/19 15:30 Dose: 4 mg Documented by: Admin: 05/06/19 06:28 Dose: 4 mg Documented by: Admin: 05/05/19 20:18 Dose: 4 mg Documented by: Admin: 05/05/19 02:15 Dose: 4 mg Documented by: Admin: 05/04/19 12:40 Dose: 4 mg Documented by: RAPHAEL Oxycodone/Acetaminophen (Percocet 10-325mg) 1 tab PO Q4HP PRN; Protocol PRN Reason: Per Pain Protocol Last Admin: 05/09/19 09:39 Dose: 1 tab Documented by: [email or web address] Admin: 05/09/19 04:28 Dose: 1 tab Documented by: Admin: 05/08/19 23:54 Dose: 1 tab Documented by: Admin: 05/08/19 19:46 Dose: 1 tab Documented by: Admin: 05/08/19 15:41 Dose: 1 tab Documented by: Admin: 05/08/19 12:05 Dose: 1 tab Documented by: Admin: 05/08/19 07:55 Dose: 1 tab Documented by: Admin: 05/08/19 03:29 Dose: 1 tab Documented by: Admin: 05/07/19 23:25 Dose: 1 tab Documented by: Admin: 05/07/19 19:36 Dose: 1 tab Documented by: Admin: 05/07/19 15:45 Dose: 1 tab Documented by: [email or web address] Sodium Chloride (Saline Flush) 10 ml IV Q8 MAHENDRA Last Admin: 05/09/19 06:03 Dose: Not Given Documented by: Admin: 05/08/19 22:05 Dose: Not Given Documented by: Admin: 05/08/19 15:30 Dose: Not Given Documented by: Admin: 05/08/19 05:40 Dose: Not Given Documented by: Admin: 05/07/19 21:11 Dose: 10 ml Documented by: Admin: 05/07/19 15:29 Dose: Not Given Documented by: [email or web address] Admin: 05/07/19 06:00 Dose: Not Given Documented by: Admin: 05/06/19 22:44 Dose: Not Given Documented by: Admin: 05/06/19 14:57 Dose: 10 ml Documented by: Admin: 05/06/19 06:36 Dose: Not Given Documented by: Admin: 05/05/19 20:09 Dose: Not Given Documented by: Admin: 05/05/19 16:21 Dose: 10 ml Documented by: Admin: 05/05/19 05:55 Dose: Not Given Documented by: Admin: 05/04/19 23:28 Dose: Not Given Documented by: Admin: 05/04/19 13:22 Dose: 10 ml Documented by: Admin: 05/04/19 05:23 Dose: 10 ml Documented by: Admin: 05/03/19 21:37 Dose: 10 ml Documented by: Admin: 05/03/19 14:31 Dose: Not Given Documented by: [email or web address] Admin: 05/03/19 05:39 Dose: 10 ml Documented by: Admin: 05/02/19 21:14 Dose: 10 ml Documented by: Admin: 05/02/19 13:07 Dose: Not Given Documented by: [email or web address] Admin: 05/02/19 06:06 Dose: Not Given Documented by: Admin: 05/01/19 20:06 Dose: Not Given Documented by: OJ Shift Summary 05/09/19 05:18 Shift Summary by Harinder Chavez Pt rested fairly well - IV Ativan 1mg given @ 2200. IV LT A/C infusing LR @ 125ml/hr. She is tolerating full liquid diet well - has again denied nausea all shift. She has been passing flatus, and had only 1x loose BM - voiding QS into toilet. Midline ABD incision w/ roberta in place - Tegaderm dressing C,D,I. ABD pressure/pain 5-8/10 - IV Dilaudid 1mg given x1 - last @ 2100, and PO Percocet 10 (1) Q 4hr - last @ 0430. K-pad also on & off to ABD. Pt up (I) in RM & on unit - AMB out in archer early in the shift. She is A&Ox4, calm, pleasant, & cooperative. Initialized on 05/09/19 05:18 - END OF NOTE
--- NOTE | 2019-05-09 11:45 | XRay Report ---
CLINICAL INFORMATION: FOLLOW -UP OF SMALL BOWEL OBSTRUCTION COMPARISON: 05/08/2019 FINDINGS: Multiple loops of mildly dilated small bowel in the upper abdomen with relative decompression of the distal small bowel and colon. No free air or soft tissue mass IMPRESSION: Suspect recurrent partial small bowel obstruction. Consider small bowel follow-through Interpreted and Authenticated by: Rg Yang 05/09/19
[2019-05-09 13:08] LABS: Basophils # (Auto) 0.02 K/mcL (0.00-0.30); Basophils % (Auto) 0.2 % (0.0-2.0); Eosinophils # (Auto) 0.24 K/mcL (0.00-0.70); Eosinophils % (Auto) 1.8 % (0.0-7.0); Granulocytes % (Auto) 79.1 % (38.0-78.0); Hematocrit 37.6 % (34.1-44.9); Hemoglobin 12.3 g/dL (11.2-15.7); Lymphocytes % (Auto) 13.7 % (15.5-49.0); Mean Cell Volume 87.6 fL (80.0-100.0); Mean Corpuscular HGB Conc 32.7 g/dL (31.0-36.0); Mean Platelet Volume 9.8 fL (7.4-10.4); Monocytes # (Auto) 0.68 K/mcL (0.10-0.90); Monocytes % (Auto) 5.2 % (1.0-12.0); Platelet Count 455 K/mcL (140-440); RBC 4.29 M/mcL (3.59-5.38); Red Cell Distribution Width 12.7 % (11.5-14.5); WBC 13.1 K/mcL (4.50-11.00)
[2019-05-09 13:25] LABS: ALT/SGPT 201 U/l (0-40); AST/SGOT 272 U/l (0-37); Albumin 3.2 gm/dL (3.2-5.2); Albumin/Globulin Ratio 0.9 (1.0-2.3); Alkaline Phosphatase 96 U/L (39-117); Bilirubin,Direct < 0.2 mg/dL (0.0-0.3); Bilirubin,Total 0.5 mg/dL (0.0-1.0); Blood Urea Nitrogen 5 mg/dl (6-20); Calcium 8.8 mg/dl (8.6-10.4); Carbon Dioxide 27 mmol/L (22-30); Globulin 3.6 gm/dL (2.2-3.7); Glomerular Filtration Rate 103; Glucose 109 mg/dL (70-105); Lactate Dehydrogenase 397 U/L (94-250); Phosphorous 2.8 mg/dL (2.7-4.5); Triglycerides 81 mg/dl (<150); Uric Acid 1.5 mg/dL (2.5-8.0)
[2019-05-09 13:28] LABS: Chloride 95 mmol/L (96-108)
--- NOTE | 2019-06-02 13:05 | Operative Note ---
DATE OF OPERATION: 05/01/2019 PREOPERATIVE DIAGNOSIS: Small-bowel obstruction. POSTOPERATIVE DIAGNOSES: Extensive intra-abdominal adhesions with small-bowel obstruction. PROCEDURE: Exploratory laparotomy with total intestinal adhesiolysis, small bowel resection x2, appendectomy. SURGEON: Ata Jasmine M.D. FINDINGS: Totally intraperitoneal intestinal adhesions with multiple areas of near-complete small-bowel obstruction; dense, inflammatory adhesions of ileum to lower abdominal anterior wall; tight adhesions of the uterus to lower anterior abdominal wall; enlarged ovaries bilaterally; massive dilation of the mid-jejunojejunal anastomosis with loss of peristalsis and retention of large volume of intestinal fluid; densely-adhesed appendix to the retroperitoneum. DESCRIPTION OF PROCEDURE: Under general anesthesia, the patient's abdomen was prepped and draped in a sterile field. The old or midline incision was opened and extended above the umbilicus. There were near-complete adhesions of the residual omentum to the anterior abdominal wall. This was taken down primarily with electrocautery. Next, the omentum was from the underlying small bowel, and there were dense intraloop adhesions which led to tight, almost inflammatory, reactive adhesions between the loops. These had to be taken down separately and was done primarily with Metzenbaum scissors. Once I was able to free up the small bowel and remove it from the peritoneal cavity, inspection of the pelvis revealed the ileum to be tightly adhesed to the lower anterior abdominal wall. These adhesions were taken down using Metzenbaum scissors. The uterus was densely adhered to the lower anterior abdominal wall. It was elected to leave this in place rather than take the extra time to free it up. There were no loops in the deep pelvis that needed to be freed up. The ovaries had multiple cysts bilaterally but there were no thickened, indurated, or fibrotic lesions of the ovary. Next, the small bowel was inspected. The proximal small bowel showed an old jejunojejunal anastomosis that was massively dilated and filled with a large volume of intestinal fluid. It had no peristaltic activity and was essentially flaccid. It retained a large volume of fluid, so it was felt that this could lead to obstruction, so the efferent and afferent limbs of the anastomosis were transected using a TA 60 on each limb. A primary jejunojejunostomy was then performed using ROBLES stapler followed by TA 60 stapler. The anastomosis was oversewn using running 2-0 Prolene. The mesenteric defect was closed with 2-0 Monocryl. The cecum was inspected, and it was tightly adhesed to the retroperitoneum, and the appendix was densely adhesed. It was elected to do an appendectomy since it would present a difficult problem if she should develop appendicitis and had to be explored for appendectomy. The mesoappendix was transected using LigaSure, and the appendix was excised with a TA 30 stapler. The stump was inverted using interrupted 3-0 silk. In the mid-portion of the small bowel, there was a very tight, densely adherent loop of small bowel that appeared to have intense acute and chronic inflammatory reaction as if it had been the source of a fistula. This area was dissected and was excised using a Contour stapler. An enteroenterostomy was carried out with a ROBLES 55 and a TA 60 stapler. The anastomosis was oversewn with 2-0 Prolene and the mesentery was closed with a running 2-0 Monocryl. Copious irrigation was carried out. There was a small inflammatory connection between two loops of bowel. This was dissected using fine Metzenbaum scissors. There was a small enterotomy made on the more proximal limb. This was very tiny. It was closed with inverting 3-0 Monocryl and 3-0 Prolene. Copious irrigation was carried out. The bowel was inspected from ligament of Treitz down to the terminal ileum, and there were no compromised loops. The colon was inspected and except for being tightly adherent to the lateral peritoneal wall, there were no areas of obstruction, so it was not fully dissected free. There was minimal potential for future obstruction based on the clinical findings. Once this was done, irrigation was carried out, and the bowel was returned to the peritoneal cavity. The omentum was placed over the bowel. The fascia was closed with running locking #1 Prolene. Subcutaneous tissue was irrigated and closed with 2-0 Monocryl. Skin was closed with roberta. Tegaderm dressing was placed. The patient tolerated the procedure well. She was awakened, transferred to a bed, and taken to the postanesthetic care unit in stable, satisfactory condition. LCS:jasen Job ID: [id number] Doc ID: [id number] Ata Jasmine M.D.
== END 2019-05-09 14:15 | disposition home or self-care (01) | DRG 330 ==
LOC: ED 05:48 → SUR 10:09 → MEDSUR 15:33
PROVIDERS: ADMIT Family Medicine Adult Medicine; ATTEND Family Medicine Adult Medicine